=== PATIENT | female | born 1990 | race Caucasian/White ===

== ENCOUNTER 2016-10-27 14:28 | Emergency (ER) | payer OTHER ==
[~2016-10-27] VITALS: Ht 160 cm; Wt 90.7 kg
--- NOTE | 2016-10-27 14:28 | NUR ---
Patient BIBA at this time.
--- NOTE | 2016-10-27 14:31 | NUR ---
Dr. Pelaez evaluating patient.
[2016-10-27 14:38] VITALS: BP 110/70
[2016-10-27] MEDS ORDERED: NACL 0.9% 2,500 ML IV ONE (14:45)
--- NOTE | 2016-10-27 14:45 | NUR ---
Patient to Bed 04 via gurney per EMS.
--- NOTE | 2016-10-27 14:50 | NUR ---
PT BIBA FOR EVALUATION OF GENERALIZED WEAKNESS. FIELD CROP TECHNICAL OFFICER STATES PT WAS AT HOME LAST NOC AND C/O FEELING WEAK, PROCEEDED TO FALL, STRIKING HER NOSE ON THE TILE FLOOR, RESULTING IN A NOSEBLEED. SPOUSE STATES PT THEN SLEPT ON THE FLOOR BUT WOKE UP THIS AM STILL C/O FEELING WEAK. HX DM, BLOOD SUGAR UPON ARRIVAL TO ER 313.; DENIES N/V/D; SKIN IS PINK/WARM/DRY; AAOX4 WITH EVEN AND STEADY GAIT; LUNGS CLEAR BL; HR EVEN AND REGULAR; PT DENIES ANY FEVER, CP, SOB, OR COUGH AT THIS TIME; PATIENT STATES PAIN OF 9/10 AT THIS TIME; VSS; PATIENT POSITIONED FOR COMFORT; HOB ELEVATED; BEDRAILS UP X2; BED DOWN. ER MD MADE AWARE OF PT STATUS.
--- NOTE | 2016-10-27 14:51 | NUR ---
Dr. Pelaez evaluating patient at bedside.
--- NOTE | 2016-10-27 15:22 | NUR ---
RELAYED TO DR. BUSTILLOS RESULT OF URINE DIPSTICK AND URINE PREG
[2016-10-27] MEDS ORDERED: ACETAMINOPHEN EXTRA STRENGTH 500 MG TAB PO ONE (16:15)
[2016-10-27] MEDS ORDERED: HYDROcodone/APAP 5/325 MG 1 TAB TAB PO ONE (17:25)
[2016-10-27] MEDS ORDERED: METOCLOPRAMIDE 10 MG TAB PO ONE (17:25)
--- NOTE | 2016-10-27 17:45 | NUR ---
DINNER PROVIDED TO AAO PT AT BEDSIDE
[2016-10-27 18:58] VITALS: BP 112/72
--- NOTE | 2016-10-27 18:58 | NUR ---
Patient discharged with v/s stable. Written and verbal after care instructions given and explained. Patient alert, oriented and verbalized understanding of instructions. Ambulatory with steady gait. All questions addressed prior to discharge. ID band removed. Patient advised to follow up with PMD. Rx of KEFLEX, MOTRIN given. Patient educated on indication of medication including possible reaction and side effects. Opportunity to ask questions provided and answered.
== END 2016-10-27 18:58 | disposition home or self-care (01) ==
LOC: MED 14:31
DX: G93.0 Cerebral cysts (principal); N30.90 Cystitis, unspecified without hematuria; R04.0 Epistaxis; E11.9 Type 2 diabetes mellitus without complications
CPT/HCPCS: 36415; 70450; 80053; 80305; 81001; 81025; 82550; 82948; 85025; 87086; 93005; 96360; 96361; 99285; G0482; J7030; J8597; Q0163

== ENCOUNTER 2016-11-20 12:27 | Emergency (ER) | payer OTHER ==
[~2016-11-20] VITALS: Ht 162.6 cm; Wt 77.1 kg
--- NOTE | 2016-11-20 12:27 | NUR ---
1220--PT BIBA TO BED 8 AT THIS TIME.
[2016-11-20 12:28] VITALS: BP 116/64
[2016-11-20] MEDS ORDERED: KETOROLAC 30 MG/ML VIAL IVP ONE (12:35)
[2016-11-20] MEDS ORDERED: NACL 0.9% 1,000 ML IV ONE (12:35)
--- NOTE | 2016-11-20 12:49 | NUR ---
BIBA, PT REPORTS HAVING LOWER SUPRAPUBIC ABD PAIN THAT STARTED 2 HOURS AGO WITH SUDDEN LARGE AMOUNTS OF BRIGHT RED VAGINAL BLEEDING. PT PP 9MONTHS-NORMAL DELIVERY. PT DENIES KNOWING IF SHE IS . PT DENIES ANY FEVERS/CHILLS. NO N/V/D. SKIN WARM/DRY.
--- NOTE | 2016-11-20 13:35 | NUR ---
US AT BEDSIDE
--- NOTE | 2016-11-20 14:00 | NUR ---
NS IV end time at 1400
[2016-11-20 15:15] VITALS: BP 112/80
--- NOTE | 2016-11-20 15:17 | NUR ---
Patient discharged with v/s stable. Written and verbal after care instructions given and explained. Patient alert, oriented and verbalized understanding of instructions. Ambulatory with steady gait. All questions addressed prior to discharge. ID band removed. Patient advised to follow up with PMD. Patient educated on indication of medication including possible reaction and side effects. Opportunity to ask questions provided and answered.
== END 2016-11-20 15:17 | disposition home or self-care (01) ==
LOC: MED 12:27
DX: N93.8 Other specified abnormal uterine and vaginal bleeding (principal); E11.9 Type 2 diabetes mellitus without complications
CPT/HCPCS: 36415; 76801; 76817; 80048; 81001; 81025; 84702; 85025; 86900; 86901; 87086; 96361; 96374; 99285; J1885; J7030; Q0092

== ENCOUNTER 2017-03-25 19:03 | Emergency (ER) | payer OTHER ==
[~2017-03-25] VITALS: Ht 162.6 cm; Wt 92.5 kg
--- NOTE | 2017-03-25 19:03 | NUR ---
Patient was BIBA at this time.
--- NOTE | 2017-03-25 19:15 | NUR ---
PT TAKEN TO ER BED 05 VIA JUAN/MARIOLA.
--- NOTE | 2017-03-25 19:16 | NUR ---
27 y/o F BIBA W/C/O DIZZINESS, HEADACHES, NAUSEA AND R SIDE ABD PAIN WHICH RADIATES TO LOWER ABD PAIN X TODAY. PT DENIES ANY SOB, 96% RA, NO S/S OF RESP DISTRESS. MED HX DM ON METFORMIN. IV [address] ROUTE BY MEDICS. ER MD MADE AWARE.
[2017-03-25 19:18] VITALS: BP 127/80
--- NOTE | 2017-03-25 19:24 | NUR ---
Pam john in ED - 03/25/[address] Fields evaluating patient at bedside.
--- NOTE | 2017-03-25 19:38 | NUR ---
Dr. Mancia evaluating patient at bedside.
[2017-03-25] MEDS ORDERED: NACL 0.9% 1,000 ML IV ONE (19:50)
--- NOTE | 2017-03-25 19:56 | NUR ---
LAB at bedside.
[2017-03-25 20:14] LABS: BASOPHILS # (AUTO) 0.1 K/uL (0.00-0.22); BASOPHILS % (AUTO) 1.8 % (0.0-2.0); EOSINOPHILS # (AUTO) 0.2 K/uL (0-0.4); EOSINOPHILS % (AUTO) 1.9 % (0.0-4.0); HEMATOCRIT 43.2 % (36-48); HEMOGLOBIN 14.9 g/dL (12.0-16.0); LYMPHOCYTES # (AUTO) 2.8 K/uL (2.5-16.5); LYMPHOCYTES % (AUTO) 35.9 % (20.5-51.1); MEAN CORPUSCULAR HEMOGLOBIN 30 pg (27-31); MEAN CORPUSCULAR HGB CONC 35 g/dL (33-37); MEAN CORPUSCULAR VOLUME 86 fL (80-94); MONOCYTES # (AUTO) 0.5 K/uL (0.8-1.0); MONOCYTES % (AUTO) 6.7 % (1.7-9.3); NEUTROPHILS # (AUTO) 4.3 K/uL (1.8-7.7); NEUTROPHILS % (AUTO) 53.7 % (42.2-75.2); PLATELET COUNT (AUTO) 230 K/uL (140-450); RED BLOOD CELL COUNT(AUTO) 5.03 MIL/uL (4.20-5.40); RED CELL DISTRIBUTION WIDTH 12.3 % (11.6-13.7); WHITE BLOOD COUNT (AUTO) 7.9 K/uL (4.8-10.8)
[2017-03-25 20:15] LABS: APPEARANCE,URINE HAZY (CLEAR); BILIRUBIN,URINE NEGATIVE (NEGATIVE); BLOOD, URINE TRACE-L (NEGATIVE); COLOR,URINE YELLOW (YELLOW); LEUKOCYTE ESTERASE ,URINE NEGATIVE (NEGATIVE); NITRITE, URINE NEGATIVE (NEGATIVE); PROTEIN,URINE 1+ (NEGATIVE); UGLUCOSE 3+ (NEGATIVE); UROBILINOGEN,URINE 0.2 EU/dL (0.2 - 1)
[2017-03-25 20:22] LABS: BACTERIA,URINE 1-9 (FEW) /HPF (None Seen)
[2017-03-25 20:24] LABS: ANION GAP 11.7 (8-16); CALCIUM 7.9 mg/dL (8.5-10.1); CARBON DIOXIDE 25.8 mmol/L (21-32); CREATININE 0.8 mg/dL (0.6-1.3); POTASSIUM 4.5 mmol/L (3.5-5.1)
[2017-03-25 20:30] LABS: ALBUMIN 3.7 g/dL (3.4-5.0); TOTAL BILIRUBIN 0.5 mg/dL (0.0-1.0); TOTAL PROTEIN, SERUM 7.8 g/dL (6.4-8.2)
--- NOTE | 2017-03-25 20:34 | NUR ---
Patient going to CT via wheelchair per tech.
--- NOTE | 2017-03-25 20:46 | NUR ---
Patient back from CT via wheelchair per tech.
--- NOTE | 2017-03-25 21:10 | NUR ---
PT RESTING IN BED AWATING FOR RESULTS. ON TELEGRAPHIC INSTRUMENT SUPERVISOR, VSS.
[2017-03-25] MEDS ORDERED: MORPHINE SULFATE 2 MG/ML SYR IVP ONE (21:40)
[2017-03-25] MEDS ORDERED: ONDANSETRON 4 MG/2 ML VIAL IVP ONE (21:40)
[2017-03-25] MEDS ORDERED: INSULIN HUMAN REGULAR 100 UNITS/ML 10 ML VIAL SUBQ ONE (21:55)
--- NOTE | 2017-03-25 22:24 | NUR ---
Patient discharged with v/s stable. Written and verbal after care instructions given and explained. Patient alert, oriented and verbalized understanding of instructions. Ambulatory with steady gait. All questions addressed prior to discharge. ID band removed. Patient advised to follow up with PMD IN 1-2 DAYS. Rx of ZOFRAN given. Patient educated on indication of medication including possible reaction and side effects. Opportunity to ask questions provided and answered.
[2017-03-25 22:26] VITALS: BP 121/78
== END 2017-03-25 22:24 | disposition home or self-care (01) ==
LOC: MED 19:03
DX: E11.65 Type 2 diabetes mellitus with hyperglycemia (principal)
CPT/HCPCS: 36415; 74176; 80053; 81001; 81025; 82948; 85025; 87086; 96361; 96372; 96374; 96375; 99285; J1815; J2270; J2405; J7030

== ENCOUNTER 2017-04-18 20:34 | Emergency (ER) | payer OTHER ==
[~2017-04-18] VITALS: Ht 167.6 cm; Wt 91.6 kg
[2017-04-18 20:42] VITALS: BP 109/65
--- NOTE | 2017-04-18 21:11 | NUR ---
PT TAKEN TO OF3
--- NOTE | 2017-04-18 21:40 | NUR ---
Dr. Faye evaluating patient at bedside.
[2017-04-18] MEDS ORDERED: KETOROLAC 60 MG/2 ML VIAL IM ONE (21:45)
--- NOTE | 2017-04-18 21:49 | NUR ---
PT TAKEN TO XRAY
--- NOTE | 2017-04-18 21:58 | NUR ---
PT RETURN FROM XRAY
[2017-04-18] MEDS ORDERED: fentaNYL 0.05 MG/ML VIAL IM ONE (22:50)
[2017-04-18] MEDS ORDERED: ONDANSETRON 4 MG ODT PO ONE (23:30)
[2017-04-18 23:40] VITALS: BP 121/64
--- NOTE | 2017-04-18 23:40 | NUR ---
Patient discharged with v/s stable. Written and verbal after care instructions given and explained. Patient alert, oriented and verbalized understanding of instructions. Ambulatory with steady gait. All questions addressed prior to discharge. ID band removed. Patient advised to follow up with PMD. Rx of Motrin, Prednisone, and Tramadol given. Patient educated on indication of medication including possible reaction and side effects. Opportunity to ask questions provided and answered.
== END 2017-04-18 23:40 | disposition home or self-care (01) ==
LOC: MED 20:34
DX: M54.41 Lumbago with sciatica, right side (principal); E11.9 Type 2 diabetes mellitus without complications
CPT/HCPCS: 72100; 81002; 81025; 96372; 99284; J1885; J3010; S0119

== ENCOUNTER 2017-04-30 19:41 | Emergency (ER) | payer OTHER ==
[~2017-04-30] VITALS: Ht 167.6 cm; Wt 90.4 kg
[2017-04-30 20:15] VITALS: BP 120/65
--- NOTE | 2017-04-30 20:55 | NUR ---
PATIENT PRESENTS TO ED WITH C/O ABDOMINAL PAIN . PT STATES SHE HAS NOT VOIDED SINCE 10AM TODAY. PATIENT ALSO REPORTS THAT SHE EXPERIENCED SOME BURNING SENSATION WHEN SHE VOIDED . DENIES N/V/D; SKIN IS PINK/WARM/DRY; AAOX4 WITH EVEN AND STEADY GAIT; LUNGS CLEAR BL; HR EVEN AND REGULAR; PT DENIES ANY FEVER, CP, SOB, OR COUGH AT THIS TIME; PATIENT STATES PAIN OF 9/10 AT THIS TIME; VSS; PATIENT POSITIONED FOR COMFORT; HOB ELEVATED; BEDRAILS UP X2; BED DOWN. ER MD MADE AWARE OF PT STATUS.
--- NOTE | 2017-04-30 20:55 | NUR ---
Patient to bed 08.
[2017-04-30] MEDS ORDERED: HYDROcodone/APAP 5/325 MG 1 TAB TAB PO ONE (21:15)
[2017-04-30] MEDS ORDERED: PHENAZOPYRIDINE 100 MG TAB PO ONE (21:55)
--- NOTE | 2017-04-30 22:11 | NUR ---
BLADDER SCAN DONE AT BEDSIDE. 419ML URINE NOTED. BOBBY HAYWOOD NOTIFIED
--- NOTE | 2017-04-30 22:37 | NUR ---
Pam john in ED - 04/30/17 at 2237 by KEITH Patient back from CT via wheelchair per tech.
--- NOTE | 2017-04-30 23:44 | NUR ---
Patient discharged with v/s stable. Written and verbal after care instructions given and explained. Patient alert, oriented and verbalized understanding of instructions. Ambulatory with steady gait. All questions addressed prior to discharge. ID band removed. Patient advised to follow up with PMD. Rx of TYLENOL WITH CODEINE, CIPRO, COALCE, PHENAZOPYRIDINE HYDROCHLORIDE given. Patient educated on indication of medication including possible reaction and side effects. Opportunity to ask questions provided and answered.
[2017-04-30 23:56] VITALS: BP 106/67
== END 2017-04-30 23:44 | disposition home or self-care (01) ==
LOC: MED 19:41
DX: N30.00 Acute cystitis without hematuria (principal)
CPT/HCPCS: 74176; 82948; 87086; 99285; C1758

== ENCOUNTER 2017-09-09 23:24 | Emergency (ER) | payer OTHER ==
[~2017-09-09] VITALS: Ht 167.6 cm; Wt 91.2 kg
[2017-09-09 23:46] VITALS: BP 129/74
[2017-09-09] MEDS ORDERED: METF1000 PO (23:50)
--- NOTE | 2017-09-10 00:07 | NUR ---
AMBULATED TO ER BED 4
[2017-09-10 00:10] VITALS: BP 129/74
--- NOTE | 2017-09-10 00:10 | NUR ---
PATIENT PRESENTS TO ED WITH C/O LEFT SIDE ABD PAIN . PT DENIES N/V/D; SKIN IS PINK/WARM/DRY; AAOX4 WITH EVEN AND STEADY GAIT; LUNGS CLEAR BL; HR EVEN AND REGULAR; PT DENIES ANY FEVER, CP, SOB, OR COUGH AT THIS TIME; PATIENT STATES PAIN OF 8/10 AT THIS TIME; VSS; PATIENT POSITIONED FOR COMFORT; HOB ELEVATED; BEDRAILS UP X2; BED DOWN. ER MD MADE AWARE OF PT STATUS.
[2017-09-10 00:18] LABS: BASOPHILS # (AUTO) 0.4 K/uL (0.00-0.22); BASOPHILS % (AUTO) 4.3 % (0.0-2.0); EOSINOPHILS # (AUTO) 0.1 K/uL (0-0.4); EOSINOPHILS % (AUTO) 1.5 % (0.0-4.0); HEMATOCRIT 39.7 % (36-48); HEMOGLOBIN 13.4 g/dL (12.0-16.0); LYMPHOCYTES # (AUTO) 2.8 K/uL (2.5-16.5); LYMPHOCYTES % (AUTO) 29.7 % (20.5-51.1); MEAN CORPUSCULAR HEMOGLOBIN 29 pg (27-31); MEAN CORPUSCULAR HGB CONC 34 g/dL (33-37); MEAN CORPUSCULAR VOLUME 87 fL (80-94); MONOCYTES # (AUTO) 0.6 K/uL (0.8-1.0); MONOCYTES % (AUTO) 6.1 % (1.7-9.3); NEUTROPHILS # (AUTO) 5.6 K/uL (1.8-7.7); NEUTROPHILS % (AUTO) 58.4 % (42.2-75.2); PLATELET COUNT (AUTO) 281 K/uL (140-450); RED BLOOD CELL COUNT(AUTO) 4.55 MIL/uL (4.20-5.40); RED CELL DISTRIBUTION WIDTH 11.8 % (11.6-13.7); WHITE BLOOD COUNT (AUTO) 9.5 K/uL (4.8-10.8)
[2017-09-10 00:19] LABS: APPEARANCE,URINE CLEAR (CLEAR); BILIRUBIN,URINE NEGATIVE (NEGATIVE); BLOOD, URINE NEGATIVE (NEGATIVE); COLOR,URINE YELLOW (YELLOW); LEUKOCYTE ESTERASE ,URINE NEGATIVE (NEGATIVE); NITRITE, URINE NEGATIVE (NEGATIVE); UGLUCOSE NEGATIVE (NEGATIVE)
[2017-09-10 00:36] LABS: ALBUMIN 3.9 g/dL (3.4-5.0); ANION GAP 12.5 (8-16); CARBON DIOXIDE 25.9 mmol/L (21-32); CREATININE 0.7 mg/dL (0.6-1.3); POTASSIUM 3.4 mmol/L (3.5-5.1); TOTAL BILIRUBIN 0.3 mg/dL (0.0-1.0)
--- NOTE | 2017-09-10 01:28 | NUR ---
Patient discharged with v/s stable. Written and verbal after care instructions given and explained. Patient verbalized understanding. Ambulatory with steady gait. All questions addressed prior to discharge. Advised to follow up with PMD.
== END 2017-09-10 01:28 | disposition home or self-care (01) ==
LOC: MED 23:24
DX: O26.891 Other specified pregnancy related conditions, first trimester (principal); R10.32 Left lower quadrant pain; E11.9 Type 2 diabetes mellitus without complications
CPT/HCPCS: 36415; 76801; 80053; 81003; 81025; 82948; 84702; 85025; 86900; 86901; 99285; Q0092

== ENCOUNTER 2017-09-12 16:24 | Emergency (ER) | payer MEDICAID, OTHER ==
[~2017-09-12] VITALS: Ht 167.6 cm; Wt 91.2 kg
[~2017-09-12 16:24] MED LIST: METF1000 PO
[2017-09-12 16:48] VITALS: BP 107/73
--- NOTE | 2017-09-12 17:04 | NUR ---
Patient to bed 12.
--- NOTE | 2017-09-12 17:06 | NUR ---
PT PRESENTS TO ER FOR EVALUATION OF ABDOMINAL PAIN X10 DAYS. PT STATES SHE WAS SEEN IN ER 2 DAYS AGO FOR SAME S/SX AND FEELS HER SX HAVEN'T IMPROVED.HX DM. PT ALSO STATED PT HAD DIARRHEA X 2 EPISODES & URINATION BURNING X TODAY. DENIES N/V. SKIN IS PINK/WARM/DRY; AAOX4 WITH EVEN AND STEADY GAIT; LUNGS CLEAR BL; HR EVEN AND REGULAR; PT DENIES ANY FEVER, CP, SOB, OR COUGH AT THIS TIME; PATIENT STATES R BACK PAIN OF 8/10 AT THIS TIME; PATIENT POSITIONED FOR COMFORT; HOB ELEVATED; BEDRAILS UP X2; BED DOWN. ER MD MADE AWARE OF PT STATUS. Addendum: 09/12/17 at 1724 by [facility] PT STATED " I DON'T HAVE ABDOMINAL PAIN BUT R BACK PAIN AT THIS TIME.
--- NOTE | 2017-09-12 17:25 | NUR ---
Patient being evaluated by DR BUTTS AT BEDSIDE.
[2017-09-12 17:53] VITALS: BP 117/63
== END 2017-09-12 17:53 | disposition home or self-care (01) ==
LOC: MED 16:24
DX: O26.891 Other specified pregnancy related conditions, first trimester (principal); R10.9 Unspecified abdominal pain; R19.7 Diarrhea, unspecified; E11.9 Type 2 diabetes mellitus without complications; Z3A.00 Weeks of gestation of pregnancy not specified; Z79.84 Long term (current) use of oral hypoglycemic drugs
CPT/HCPCS: 81002; 81025; 99283

== ENCOUNTER 2018-12-13 18:20 | Emergency (ER) | payer MEDICAID ==
[~2018-12-13] VITALS: Ht 154.9 cm; Wt 91.6 kg
[2018-12-13 18:20] VITALS: BP 117/81
--- NOTE | 2018-12-13 20:11 | NUR ---
called x 1 no response
== END 2018-12-13 20:12 | disposition left against medical advice (07) ==
LOC: MED 18:20
DX: F41.0 Panic disorder [episodic paroxysmal anxiety] (principal); R06.00 Dyspnea, unspecified; R20.0 Anesthesia of skin; Z53.21 Procedure and treatment not carried out due to patient leaving prior to being seen by health care provider

== ENCOUNTER 2019-01-15 23:33 | Emergency (ER) | payer MEDICAID ==
[~2019-01-15] VITALS: Ht 162.6 cm; Wt 92.5 kg
--- NOTE | 2019-01-15 23:35 | NUR ---
BIBA WITH C/O HO AND RIGHT SIDED FACIAL NUMBNESS WITH BLURRED VISION ON RIGHT SIDE. PERRL, NO ASSYMETRY NOTED IN SKIN LAP BONDER OR SMILE. DIZZINESS AND SOB REPORTED. NO LABORED BREATHING NOTED AT THIS TIME. PATIENT SPEAKING IN FULL AND COMPLETE SENTENCES.
[2019-01-15 23:36] VITALS: BP 113/65
--- NOTE | 2019-01-15 23:40 | NUR ---
ERMD AT BEDSIDE.
[2019-01-15] MEDS ORDERED: NACL 0.9% 1,000 ML IV ONE (23:47)
[2019-01-16 00:15] LABS: ANION GAP 12.7 (8-16); CARBON DIOXIDE 25.1 mmol/L (21-32); CREATININE 0.8 mg/dL (0.6-1.3); POTASSIUM 3.8 mmol/L (3.5-5.1)
[2019-01-16 00:21] LABS: TOTAL BILIRUBIN 0.4 mg/dL (0.0-1.0)
[2019-01-16 00:30] LABS: ALBUMIN 3.6 g/dL (3.4-5.0)
[2019-01-16 00:50] LABS: BARBITURATE, URINE NEG. ng/ml (NEG <=200); BENZODIAZEPINE, URINE NEG. ng/mL (NEG <=200); CANNABINOID, URINE NEG. ng/mL (NEG <=50); COCAINE, URINE NEG. ng/mL (NEG <=300); OPIATE, URINE NEG. ng/mL (NEG <=2000); PHENCYCLIDINE SCREEN,URINE NEG. ng/mL (NEG <=25)
[2019-01-16] MEDS ORDERED: NACL 0.9% 1,000 ML IV ONE (01:25)
[2019-01-16] MEDS ORDERED: INSULIN REGULAR, HUMAN 100 UNIT/ML VIAL IVP ONE (01:25)
--- NOTE | 2019-01-16 01:35 | NUR ---
PATIENT AMB TO RESTROOM ASSISTED BY EMT.
[2019-01-16 02:01] VITALS: BP 108/63
--- NOTE | 2019-01-16 02:02 | NUR ---
Patient discharged with v/s stable. Written and verbal after care instructions given and explained. Patient alert, oriented and verbalized understanding of instructions. Ambulatory with steady gait. All questions addressed prior to discharge. ID band removed. Patient advised to follow up with PMD. Rx of METFORMIN given. Patient educated on indication of medication including possible reaction and side effects. Opportunity to ask questions provided and answered.
== END 2019-01-16 02:02 | disposition home or self-care (01) ==
LOC: MED 23:33
DX: E11.65 Type 2 diabetes mellitus with hyperglycemia (principal); Z79.84 Long term (current) use of oral hypoglycemic drugs
CPT/HCPCS: 36415; 80053; 80305; 81002; 81025; 82948; 96361; 96374; 99283; J1815; J7030

== ENCOUNTER 2019-10-02 18:33 | Emergency (ER) | payer MEDICAID ==
[~2019-10-02] VITALS: Ht 162.6 cm; Wt 86.2 kg
[2019-10-02 19:04] VITALS: BP 132/72
--- NOTE | 2019-10-02 19:25 | NUR ---
PATIENT AMB TO [facility]
--- NOTE | 2019-10-02 19:32 | NUR ---
PUNEET CAMPOS AT CHAIRSIDE
[2019-10-02] MEDS ORDERED: KETOROLAC 30 MG/ML VIAL IM ONE (19:35)
--- NOTE | 2019-10-02 19:36 | NUR ---
ASSESSMENT COMPLETED AT THIS TIME. PATIENT SITTING UP IN CHAIR WITH FAMILY AT BEDSIDE.
[2019-10-02 19:53] VITALS: BP 132/72
--- NOTE | 2019-10-02 19:53 | NUR ---
Patient discharged with v/s stable. Written and verbal after care instructions given and explained. Patient alert, oriented and verbalized understanding of instructions. Ambulatory with steady gait. All questions addressed prior to discharge. ID band removed. Patient advised to follow up with PMD. Rx of PREDNISONE, IBUPROFEN, AMOXICILLIN given. Patient educated on indication of medication including possible reaction and side effects. Opportunity to ask questions provided and answered.
== END 2019-10-02 19:53 | disposition home or self-care (01) ==
LOC: MED 18:33
DX: J02.9 Acute pharyngitis, unspecified (principal); E11.9 Type 2 diabetes mellitus without complications; Z79.84 Long term (current) use of oral hypoglycemic drugs
CPT/HCPCS: 82948; 96372; 99283; J1885

== ENCOUNTER 2019-12-23 20:24 | Emergency (ER) | payer MEDICAID, SELFPAY ==
[~2019-12-23] VITALS: Ht 162.6 cm; Wt 86.2 kg
[2019-12-23 20:33] VITALS: BP 100/69
[2019-12-23] MEDS ORDERED: NACL 0.9% 1,000 ML IV ONE ×2 (21:00→23:10)
[2019-12-23] MEDS ORDERED: ACETAMINOPHEN 325 MG TAB PO ONE (21:40)
[2019-12-23] MEDS ORDERED: DEXAMETHASONE 4 MG/ML VIAL PO ONE (21:40)
[2019-12-23 22:33] LABS: BASOPHILS # (AUTO) 0.1 K/uL (0.00-0.22); BASOPHILS % (AUTO) 0.6 % (0.0-2.0); EOSINOPHILS # (AUTO) 0.2 K/uL (0-0.4); EOSINOPHILS % (AUTO) 1.7 % (0.0-4.0); HEMATOCRIT 35.2 % (36-48); HEMOGLOBIN 12.1 g/dL (12.0-16.0); LYMPHOCYTES # (AUTO) 2.6 K/uL (2.5-16.5); LYMPHOCYTES % (AUTO) 26.7 % (20.5-51.1); MEAN CORPUSCULAR HEMOGLOBIN 30 pg (27-31); MEAN CORPUSCULAR HGB CONC 34 g/dL (33-37); MEAN CORPUSCULAR VOLUME 87.1 fL (80-94); MONOCYTES # (AUTO) 0.7 K/uL (0.8-1.0); MONOCYTES % (AUTO) 6.7 % (1.7-9.3); NEUTROPHILS # (AUTO) 6.3 K/uL (1.8-7.7); NEUTROPHILS % (AUTO) 64.3 % (42.2-75.2); PLATELET COUNT (AUTO) 293 K/uL (140-450); RED BLOOD CELL COUNT(AUTO) 4.05 MIL/uL (4.20-5.40); RED CELL DISTRIBUTION WIDTH 12.7 % (11.6-13.7); WHITE BLOOD COUNT (AUTO) 9.8 K/uL (4.8-10.8)
[2019-12-23 22:59] LABS: ALBUMIN 3.4 g/dL (3.4-5.0); ANION GAP 13.3 (8-16); CARBON DIOXIDE 27.1 mmol/L (21-32); CREATININE 0.8 mg/dL (0.6-1.3); POTASSIUM 3.4 mmol/L (3.5-5.1); TOTAL BILIRUBIN 0.2 mg/dL (0.0-1.0)
[2019-12-23] MEDS ORDERED: PENICILLIN G BENZATHINE L-A 1.2 MU/2 ML SYR IM ONE (23:45)
[2019-12-24 00:54] VITALS: BP 104/60
== END 2019-12-24 00:38 | disposition home or self-care (01) ==
LOC: MED 20:24 → EEVIPCON 20:24 → MED 12-24 00:38
DX: J02.9 Acute pharyngitis, unspecified (principal); Z20.828 Contact with and (suspected) exposure to other viral communicable diseases; E11.9 Type 2 diabetes mellitus without complications; Z79.84 Long term (current) use of oral hypoglycemic drugs
CPT/HCPCS: 36415; 71045; 80053; 83605; 85025; 87040; 87081; 87804; 96372; 99284; J0561; J1100; J7030; Q0092; U0002

== ENCOUNTER 2020-02-04 11:52 | Emergency (ER) | payer MEDICAID, SELFPAY ==
[~2020-02-04] VITALS: Ht 162.6 cm; Wt 88.5 kg
[2020-02-04 11:55] VITALS: BP 112/66
--- NOTE | 2020-02-04 11:56 | NUR ---
Patient ambulated to bed 1. RN evaluating patient at bedside.
--- NOTE | 2020-02-04 12:05 | NUR ---
PT C/O FREQUENCY, URGENCY, AND BURNING SENSATION OF URINATION, AND MID LOWER BACK PAIN FOR 2 DAYS, AND SLIGHT SPOTTING YESTERDAY. ALSO REPORTS HAVING MILD RIGHT LOWER ABDOMINAL PAIN WHILE LYING DOWN. DENIES HEMATURIA OR DYSURIA. DENIES COUGH, FEVER, CP, SOB, N/V/D, RUNNY NOSE, SORE THROAT, SICK CONTACTS, OR RECENT TRAVEL. PATIENT STATES PAIN OF 7/10 AT THIS TIME; VSS; PATIENT POSITIONED FOR COMFORT; HOB ELEVATED; BEDRAILS UP X1; BED DOWN. ER MD MADE AWARE OF PT STATUS.
[2020-02-04] MEDS ORDERED: ACETAMINOPHEN 325 MG TAB PO ONE (12:30)
[2020-02-04] MEDS ORDERED: IBUPROFEN 400 MG TAB PO ONE (12:30)
--- NOTE | 2020-02-04 13:11 | NUR ---
U/S IS AT BEDSIDE.
[2020-02-04 13:18] LABS: BASOPHILS % (AUTO) 0.3 % (0.0-2.0); EOSINOPHILS # (AUTO) 0.1 K/uL (0-0.4); HEMOGLOBIN 13.3 g/dL (12.0-16.0); LYMPHOCYTES % (AUTO) 27.3 % (20.5-51.1); MEAN CORPUSCULAR HEMOGLOBIN 30 pg (27-31); MEAN CORPUSCULAR HGB CONC 34 g/dL (33-37); MEAN CORPUSCULAR VOLUME 87.9 fL (80-94); MONOCYTES # (AUTO) 0.4 K/uL (0.8-1.0); MONOCYTES % (AUTO) 5.6 % (1.7-9.3); NEUTROPHILS # (AUTO) 4.8 K/uL (1.8-7.7); NEUTROPHILS % (AUTO) 64.8 % (42.2-75.2); PLATELET COUNT (AUTO) 257 K/uL (140-450); RED BLOOD CELL COUNT(AUTO) 4.43 MIL/uL (4.20-5.40); RED CELL DISTRIBUTION WIDTH 12.8 % (11.6-13.7); WHITE BLOOD COUNT (AUTO) 7.4 K/uL (4.8-10.8)
[2020-02-04 13:22] LABS: CARBON DIOXIDE 26.9 mmol/L (21-32); CREATININE 0.7 mg/dL (0.6-1.3); POTASSIUM 3.9 mmol/L (3.5-5.1)
[2020-02-04 13:26] LABS: APPEARANCE,URINE HAZY (CLEAR); BILIRUBIN,URINE NEGATIVE (NEGATIVE); BLOOD, URINE NEGATIVE (NEGATIVE); COLOR,URINE YELLOW (YELLOW); LEUKOCYTE ESTERASE ,URINE 1+ (NEGATIVE); NITRITE, URINE NEGATIVE (NEGATIVE); UGLUCOSE TRACE (NEGATIVE)
[2020-02-04 13:52] LABS: RBC,URINE 0-5 /HPF (0-5)
[2020-02-04] MEDS ORDERED: CEPHALEXIN 500 MG CAP PO ONE (14:00)
[2020-02-04 14:18] VITALS: BP 105/60
--- NOTE | 2020-02-04 14:18 | NUR ---
Patient discharged with v/s stable. Written and verbal after care instructions given and explained. Patient alert, oriented and verbalized understanding of instructions. Ambulatory with steady gait. All questions addressed prior to discharge. ID band removed. Patient advised to follow up with PMD. Rx of AND KEFLEX given. Patient educated on indication of medication including possible reaction and side effects. Opportunity to ask questions provided and answered.
== END 2020-02-04 14:18 | disposition home or self-care (01) ==
LOC: MED 11:52
DX: R10.30 Lower abdominal pain, unspecified (principal); M54.9 Dorsalgia, unspecified; R35.0 Frequency of micturition; E11.9 Type 2 diabetes mellitus without complications; Z79.84 Long term (current) use of oral hypoglycemic drugs
CPT/HCPCS: 36415; 76817; 80048; 81001; 81025; 84702; 85025; 86900; 86901; 87086; 87186; 99284; Q0092

== ENCOUNTER 2020-02-28 21:37 | Emergency (ER) | payer MEDICAID, SELFPAY ==
[~2020-02-28] VITALS: Ht 162.6 cm; Wt 88.9 kg
[2020-02-28 21:41] VITALS: BP 95/60
--- NOTE | 2020-02-28 21:45 | NUR ---
PT TAKEN TO BED 04 VIA WHEELCHAIR.
--- NOTE | 2020-02-28 21:48 | NUR ---
Pam john in ED - 02/28/20 at 2154 by MEDJJ PT TAKEN TO RADIOLOGY
--- NOTE | 2020-02-28 21:50 | NUR ---
30 Y/O FEMALE BIB PARTNER TO ER WITH C/O MIDLINE/CENTER LBP W/O RADIATION X 1 DAY 05/10 PAIN. LOWER BACK TTP. DENIES INJURY TO AFFECTED AREA, PAINFUL URINATION,NO VISIBLE BLOOD IN URINE, ABDOMINAL CRAMPING, DIARRHEA, NAUSEA, VOMITING, SOB, OR COUGH. VAGINAL BLEEDING, OR DISCHARGE, CONSTIPATION. R/R EQUAL, AND UNLABORED, VSS. PT PLACED IN GOWN, SIDE RAIL X1, BED IN LOW POSITION, WILL CONTINUE TO MONITOR. NKDA PMH: DM II
--- NOTE | 2020-02-28 21:50 | NUR ---
PT MOVED TO BED 12 VIA WHEELCHAIR.
--- NOTE | 2020-02-28 22:07 | NUR ---
Ultrasound at bedside.
[2020-02-28 22:21] LABS: BASOPHILS % (AUTO) 0.4 % (0.0-2.0); EOSINOPHILS # (AUTO) 0.2 K/uL (0-0.4); HEMATOCRIT 36.8 % (36-48); HEMOGLOBIN 12.7 g/dL (12.0-16.0); LYMPHOCYTES # (AUTO) 2.8 K/uL (2.5-16.5); LYMPHOCYTES % (AUTO) 34.3 % (20.5-51.1); MEAN CORPUSCULAR HEMOGLOBIN 31 pg (27-31); MEAN CORPUSCULAR HGB CONC 35 g/dL (33-37); MEAN CORPUSCULAR VOLUME 88.8 fL (80-94); MONOCYTES # (AUTO) 0.5 K/uL (0.8-1.0); MONOCYTES % (AUTO) 5.7 % (1.7-9.3); NEUTROPHILS # (AUTO) 4.7 K/uL (1.8-7.7); NEUTROPHILS % (AUTO) 57.6 % (42.2-75.2); PLATELET COUNT (AUTO) 262 K/uL (140-450); RED BLOOD CELL COUNT(AUTO) 4.14 MIL/uL (4.20-5.40); RED CELL DISTRIBUTION WIDTH 12.9 % (11.6-13.7); WHITE BLOOD COUNT (AUTO) 8.1 K/uL (4.8-10.8)
[2020-02-28 22:53] LABS: ALBUMIN 3.7 g/dL (3.4-5.0); CARBON DIOXIDE 25.8 mmol/L (21-32); CREATININE 0.9 mg/dL (0.6-1.3); TOTAL BILIRUBIN 0.4 mg/dL (0.0-1.0)
[2020-02-28 23:01] LABS: ANION GAP 15.1 (8-16); POTASSIUM 3.9 mmol/L (3.5-5.1)
[2020-02-28] MEDS ORDERED: ACETAMINOPHEN 650 MG SUPP RC ONE (23:40)
[2020-02-29 00:10] LABS: APPEARANCE,URINE CLEAR (CLEAR); BILIRUBIN,URINE NEGATIVE (NEGATIVE); BLOOD, URINE NEGATIVE (NEGATIVE); COLOR,URINE YELLOW (YELLOW); LEUKOCYTE ESTERASE ,URINE NEGATIVE (NEGATIVE); NITRITE, URINE NEGATIVE (NEGATIVE); PH,URINE 6.5 (5.0-9.0); UGLUCOSE NEGATIVE (NEGATIVE)
[2020-02-29] MEDS ORDERED: ACETAMINOPHEN 325 MG TAB ONE (00:26)
[2020-02-29 00:28] LABS: RBC,URINE 0-5 /HPF (0-5); WBC,URINE NONE SEEN /HPF (0-5)
[2020-02-29] MEDS ORDERED: ACETAMINOPHEN 325 MG TAB PO ONE (00:30)
[2020-02-29 00:31] VITALS: BP 95/60
--- NOTE | 2020-02-29 00:33 | NUR ---
Patient discharged BY DR. REID with v/s stable. Written and verbal after care instructions given and explained BY DR. REID. Patient alert, oriented and verbalized understanding of instructions. Ambulatory with steady gait. All questions addressed prior to discharge. ID band removed. Patient advised to follow up with PMD. Rx of TYLENOL given. Patient educated on indication of medication including possible reaction and side effects. Opportunity to ask questions provided and answered.
== END 2020-02-29 00:33 | disposition home or self-care (01) ==
LOC: MED 21:37
DX: T14.8XXA Other injury of unspecified body region, initial encounter (principal); E11.9 Type 2 diabetes mellitus without complications; Z98.890 Other specified postprocedural states; Z79.899 Other long term (current) drug therapy; X58.XXXA Exposure to other specified factors, initial encounter; Y93.89 Activity, other specified; Y92.89 Other specified places as the place of occurrence of the external cause; Y99.8 Other external cause status
CPT/HCPCS: 36415; 76801; 80053; 81001; 81025; 84702; 85025; 86900; 86901; 99284; Q0092

== ENCOUNTER 2021-02-09 18:40 | Emergency (ER) | payer MEDICAID, SELFPAY ==
[~2021-02-09] VITALS: Ht 162.6 cm; Wt 92.5 kg
[2021-02-09 18:46] VITALS: BP 116/55
--- NOTE | 2021-02-09 18:47 | NUR ---
Patient ambulated to bed 06 with steady/even gait.
--- NOTE | 2021-02-09 19:09 | NUR ---
EMT at bedside for EKG.
--- NOTE | 2021-02-09 19:10 | NUR ---
Patient unable to void at this time. Water cup provided at bedside; encouraged to drink and void.
--- NOTE | 2021-02-09 19:20 | NUR ---
RECEIVED BEDSIDE ENDORSEMENT FROM AM SHIFT RN. PT IS IN BED, NO DISTRESS, AAOX4, ON ROOM AIR, SAFETY MEASURES IN PLACE, WILL CONTINUE TO MONITOR.
--- NOTE | 2021-02-09 19:24 | NUR ---
Dr. Zhao is evaluating patient at bedside.
--- NOTE | 2021-02-09 19:32 | NUR ---
PT VOIDED. URINE SAMPLE COLLECTED.
[2021-02-09] MEDS ORDERED: NACL 0.9% 1,000 ML IV ONE (19:35)
[2021-02-09 19:49] LABS: BASOPHILS % (AUTO) 0.4 % (0.0-2.0); EOSINOPHILS # (AUTO) 0.2 K/uL (0-0.4); EOSINOPHILS % (AUTO) 2.9 % (0.0-4.0); HEMATOCRIT 41.5 % (36-48); HEMOGLOBIN 14.2 g/dL (12.0-16.0); LYMPHOCYTES # (AUTO) 2.4 K/uL (2.5-16.5); LYMPHOCYTES % (AUTO) 38.9 % (20.5-51.1); MEAN CORPUSCULAR HEMOGLOBIN 30 pg (27-31); MEAN CORPUSCULAR HGB CONC 34 g/dL (33-37); MEAN CORPUSCULAR VOLUME 87.3 fL (80-94); MONOCYTES # (AUTO) 0.3 K/uL (0.8-1.0); MONOCYTES % (AUTO) 5.3 % (1.7-9.3); NEUTROPHILS # (AUTO) 3.2 K/uL (1.8-7.7); NEUTROPHILS % (AUTO) 52.5 % (42.2-75.2); PLATELET COUNT (AUTO) 257 K/uL (140-450); RED BLOOD CELL COUNT(AUTO) 4.76 MIL/uL (4.20-5.40); RED CELL DISTRIBUTION WIDTH 13.3 % (11.6-13.7); WHITE BLOOD COUNT (AUTO) 6.2 K/uL (4.8-10.8)
[2021-02-09 20:02] LABS: ACETONE, SERUM NEGATIVE (NEGATIVE)
[2021-02-09 20:04] LABS: ALBUMIN 3.8 g/dL (3.4-5.0); ANION GAP 9.8 (8-16); ASPARTATE AMINOTRANSFERASE 27 U/L (15-37); CARBON DIOXIDE 28.3 mmol/L (21-32); CHLORIDE 97 mmol/L (98-107); CREATININE 0.7 mg/dL (0.6-1.3); GFR ARICAN-AMERICAN 126 mL/min (>90); GLUCOSE 375 mg/dL (74-106); POTASSIUM 4.1 mmol/L (3.5-5.1); SODIUM SERUM 131 mmol/L (136-145); TOTAL BILIRUBIN 0.5 mg/dL (0.0-1.0); UREA NITROGEN, BLOOD 14 mg/dL (7-18)
[2021-02-09 20:35] LABS: APPEARANCE,URINE CLEAR (CLEAR); BILIRUBIN,URINE NEGATIVE (NEGATIVE); BLOOD, URINE NEGATIVE (NEGATIVE); COLOR,URINE YELLOW (YELLOW); LEUKOCYTE ESTERASE ,URINE NEGATIVE (NEGATIVE); NITRITE, URINE NEGATIVE (NEGATIVE); PH,URINE 5.5 (5.0-9.0); UGLUCOSE 3+ (NEGATIVE)
[2021-02-09] MEDS ORDERED: INSULIN REGULAR, HUMAN 100 UNIT/ML VIAL IVP ONE (20:50)
--- NOTE | 2021-02-09 21:23 | NUR ---
HUMULIN R GIVEN IVP ORDERED, TOLERATED WELL.
--- NOTE | 2021-02-09 21:26 | NUR ---
Female Mink Rancher accompanied female patient for Pelvic Exam. PATIENT IS COMFORTABLE BEFORE DURING AND AFTER EXAMINATION OF THE DOCTOR.
[2021-02-09] MEDS ORDERED: INSU100S22 SUBQ (21:38)
[2021-02-09] MEDS ORDERED: FLUC150T PO (21:38)
[2021-02-09 21:46] VITALS: BP 116/55
--- NOTE | 2021-02-09 21:46 | NUR ---
Patient discharged with v/s stable. Written and verbal after care instructions given and explained. Patient alert, oriented and verbalized understanding of instructions. Ambulatory with steady gait. All questions addressed prior to discharge. ID band removed. Patient advised to follow up with PMD. Rx of FLUCONAZOLE AND ISULIN GLARGINE HUMAN given. Patient educated on indication of medication including possible reaction and side effects. Opportunity to ask questions provided and answered.
--- NOTE | 2021-02-10 23:48 | NUR ---
LATE ENTRY- NORMAL SALINE 0.9% DISCONTINUED AT 2200
== END 2021-02-09 21:46 | disposition home or self-care (01) ==
LOC: MED 18:40
DX: E11.65 Type 2 diabetes mellitus with hyperglycemia (principal); N89.8 Other specified noninflammatory disorders of vagina; R07.89 Other chest pain; Z79.4 Long term (current) use of insulin; Z79.899 Other long term (current) drug therapy; Z98.890 Other specified postprocedural states
CPT/HCPCS: 36415; 71045; 80053; 81003; 81025; 82009; 82948; 84484; 85025; 93005; 96361; 96374; 99285; J1815; J7030

== ENCOUNTER 2021-04-29 19:42 | Observation (INO) | payer MEDICAID, OTHER ==
[~2021-04-29] VITALS: Ht 162.6 cm; Wt 93.0 kg
[~2021-04-29 19:42] MED LIST changes: +FLUC150T PO; +INSU100S22 SUBQ
--- NOTE | 2021-04-29 19:48 | NUR ---
CALLED TO TRIAGE, NO ANSWER
[2021-04-29 19:50] VITALS: BP 129/64
--- NOTE | 2021-04-29 20:14 | NUR ---
31 YO/F BIB SELF ACCOMPANIED BY MOTHER W C/O RLQ SHARP ABDOMINAL PAIN 10/10 X 3HOURS. REPORTS PAIN FEELS BETTER WHEN ABDOMEN IS PRESSED ON. PATIENT REPORTS CONSTIPATION X2 DAYS. PATIENT REPORTS N/V X3 HOURS WHEN PAIN BEGAN. DENIES BLOOD IN VOMIT, DENIES FEVER. VSS. PATIENT SITTING IN BED LOCKED IN LOWEST POSITION, X2 SIDE RAILS UP FOR PATIENT SAFETY. NAD NOTED, WILL CONTINUE TO MONITOR. MOTHER AT BEDSIDE. PMH:DIABETES, X7 MO AGO VIOLETA
[2021-04-29] MEDS ORDERED: ONDANSETRON 4 MG/2 ML VIAL IVP ONE ×3 (20:15→23:25)
[2021-04-29] MEDS ORDERED: MORPHINE SULFATE 4 MG/ML SYR IVP ONE (20:15)
[2021-04-29 20:39] LABS: BASOPHILS % (AUTO) 0.3 % (0.0-2.0); EOSINOPHILS # (AUTO) 0.1 K/uL (0-0.4); EOSINOPHILS % (AUTO) 1.9 % (0.0-4.0); HEMATOCRIT 39.3 % (36-48); HEMOGLOBIN 13.6 g/dL (12.0-16.0); LYMPHOCYTES # (AUTO) 2.8 K/uL (2.5-16.5); LYMPHOCYTES % (AUTO) 34.4 % (20.5-51.1); MEAN CORPUSCULAR HEMOGLOBIN 30 pg (27-31); MEAN CORPUSCULAR HGB CONC 35 g/dL (33-37); MEAN CORPUSCULAR VOLUME 86.5 fL (80-94); MONOCYTES # (AUTO) 0.5 K/uL (0.8-1.0); NEUTROPHILS # (AUTO) 4.6 K/uL (1.8-7.7); NEUTROPHILS % (AUTO) 57.4 % (42.2-75.2); PLATELET COUNT (AUTO) 275 K/uL (140-450); RED BLOOD CELL COUNT(AUTO) 4.55 MIL/uL (4.20-5.40); RED CELL DISTRIBUTION WIDTH 13.4 % (11.6-13.7)
--- NOTE | 2021-04-29 20:55 | NUR ---
CONSENT OBTAINED FOR CT WITH CONTRAST.
[2021-04-29 20:56] LABS: ALBUMIN 3.7 g/dL (3.4-5.0); ANION GAP 11.4 (8-16); CARBON DIOXIDE 25.2 mmol/L (21-32); CREATININE 0.6 mg/dL (0.6-1.3); POTASSIUM 3.6 mmol/L (3.5-5.1); TOTAL BILIRUBIN 0.5 mg/dL (0.0-1.0)
--- NOTE | 2021-04-29 21:12 | NUR ---
PATIENT LAYING IN BED LOCKED IN LOWEST POSITION, X2 SIDERAILS UP FOR PATIENT SAFETY. PATIENT DENIES ANY PAIN. VSS. MOTHER AT BEDSIDE.
--- NOTE | 2021-04-29 23:17 | NUR ---
PATIENT REPORTS SHE FEELS DIZZY AND WOULD LIKE TO HAVE HER GLUCOSE CHECKED. ACCU CHECK DONE W GLU AT 185. ERMD MADE AWARE, NO NEW ORDERS.
[2021-04-30 00:04] LABS: APPEARANCE,URINE CLOUDY (CLEAR); BILIRUBIN,URINE NEGATIVE (NEGATIVE); BLOOD, URINE TRACE-I (NEGATIVE); COLOR,URINE YELLOW (YELLOW); LEUKOCYTE ESTERASE ,URINE NEGATIVE (NEGATIVE); NITRITE, URINE NEGATIVE (NEGATIVE); UGLUCOSE 1+ (NEGATIVE)
--- NOTE | 2021-04-30 00:07 | NUR ---
PATIENT LAYING IN BED LOCKED IN LOWEST POSITION, X2 SIDERAILS UP FOR PATIENT SAFETY. BREATHING EVEN AND UNLABORED. NAD, NOTED. VSS. WILL CONTINUE TO MONITOR. MOTHER AT BEDSIDE.
[2021-04-30 00:24] LABS: RBC,URINE 0-5 /HPF (0-5); WBC,URINE 80-100 /HPF (0-5)
[2021-04-30 00:25] LABS: YEAST,URINE Moderate /HPF (None Seen)
[2021-04-30] MEDS ORDERED: MORPHINE SULFATE 4 MG/ML SYR ONE (01:25)
[2021-04-30] MEDS ORDERED: MORPHINE SULFATE 4 MG/ML SYR IVP ONE (01:25)
[2021-04-30] MEDS: MORPHINE SULFATE 4 MG/ML SYR IVP ONE ×2 (03:25→03:33)
--- NOTE | 2021-04-30 03:30 | NUR ---
PATIENT PASSED PO FRANCHESCA, ROSIED OK TO GIVE FOOD/DRINKS. PATIENT UNABLE TO AMBULATED DUE TO EXPERIENCING 10/10 RLQ PAIN WHEN SITTING UP OR ATTEMPTING TO WALK. ERMD MADE AWARE. PATIENT GIVEN JUICE AND SANDWHICH.
[2021-04-30] MEDS ORDERED: cefTRIAXone 1,000 MG VIAL ONE (03:34)
[2021-04-30] MEDS ORDERED: POTASSIUM CHLORIDE 10 MEQ TABER PO PRN (04:05)
[2021-04-30] MEDS ORDERED: ACETAMINOPHEN 325 MG TAB PO PRN (04:05)
[2021-04-30] MEDS ORDERED: KCL 20 MEQ/WATER INJ PREMIX 200 ML IV PRN (04:05)
[2021-04-30] MEDS ORDERED: MAGNESIUM OXIDE 400 MG TAB PO PRN (04:05)
[2021-04-30] MEDS ORDERED: MAG SULF 2000 MG/WATER PREMIX 50 ML IV PRN (04:05)
[2021-04-30] MEDS ORDERED: HYDROcodone/APAP 5/325 MG 1 TAB TAB PO PRN (04:05)
[2021-04-30] MEDS: NACL 0.9% 1,000 ML IV SCH ×2 (04:31→17:24)
[2021-04-30] MEDS ORDERED: INSU100S22 SUBQ (04:37)
--- NOTE | 2021-04-30 04:48 | NUR ---
Patient appears to be resting comfortably in bed. EYES CLOSED, NO NOTED SIGNS OF DISTRESS OR DISCOMFORT. Respirations even and unlabored.
--- NOTE | 2021-04-30 05:41 | NUR ---
PATIENT AMBULATED TO BATHROOM W STEADY GAIT. PATIENT THEN REPORTED 10/[address] HER WAY BACK TO BED. ONCE IN BED PATIENT DENIED ANY PAIN.
--- NOTE | 2021-04-30 06:20 | NUR ---
PATIENT LAYING IN BED W EYES CLOSED, BREATHING EVEN AND UNLABORED, VSS. NAD NOTED. NS FLUIDS RUNNING AT 80ML/HR W 857ML VTBI.
--- NOTE | 2021-04-30 07:17 | NUR ---
REPORT RECEIVED FROM WILLIAM COREA FOR CONTINUITY OF CARE. PT AWAKE, ALERT. ON ROOM AIR. LUNG SOUNDS CLEAR. ABD SOFT NON TENDER. SKIN INTACT, WARM AND DRY. IV SITE LAC 20G INFSUING 60 ML/HR. SAFETY PRECAUTIONS IN PLACE. WILL CONTINUE TO MONITOR.
--- NOTE | 2021-04-30 07:17 | NUR ---
Pt report given to NAHOMY Paz. Transfer of care at this time.
[2021-04-30] MEDS: MORPHINE SULFATE 4 MG/ML SYR IVP PRN ×3 (07:30→17:24)
--- NOTE | 2021-04-30 08:39 | NUR ---
PATIENT HAS BEEN SCREENED AND CATEGORIZED LOW NUTRITION RISK. PATIENT WILL BE SEEN WITHIN 7 DAYS OF ADMISSION. 05/06/[address]
[2021-04-30] MEDS: ONDANSETRON 4 MG/2 ML VIAL IVP PRN ×3 (09:55→21:57)
--- NOTE | 2021-04-30 10:00 | NUR ---
PT HAD 1 VOMITING EPISODE ZOFRAN PRN GIVEN
--- NOTE | 2021-04-30 10:36 | NUR ---
DR RAIN AT BEDSIDE EXAMINING PT
--- NOTE | 2021-04-30 10:37 | NUR ---
DR RAIN MADE AWARE OF BLOOD SUGAR 174. NO ORDERS RECEIVED.
--- NOTE | 2021-04-30 13:12 | NUR ---
PT AMBULATED TO RESTROOM, WITH ASSIST
--- NOTE | 2021-04-30 13:24 | NUR ---
PT AMBULATED BACK TO BED.
--- NOTE | 2021-04-30 16:09 | NUR ---
RECEIVED REPORT FROM ER. ACCORDING TO ED NURSE PT IS A&OX4 BREATHING ON RA. PT HAS NKA, FULL CODE WITH A CC ABD PAIN AND N/V ADM DX:UTI. PT IS NPO EXCEPT MEDS AND HER LAST BM WAS 04/27/2021. PT AMBULATES AND HER SKIN IS INTACT. PT HAS A LAC 20G IV SL. AT 0800 PT'S BG WAS 174 AND NO INSULIN COVERAGE WAS ADMINISTERED. ED NURSE SAID THAT SHE NOTIFIED BUT THERE WAS NO ANSWER. CT SCAN ON ABDOMEN WERE NEGATIVE. IT HAD BEEN RECEIVING MORPHINE AND ZOFRAN AT THE ED. WILL WIAT FOR PT TO ARRIVE TO UNIT.
--- NOTE | 2021-04-30 16:47 | NUR ---
Patient will be admitted to care of DR RAIN. Admited to MED SURG. Will go to room 112A. Belongings list completed. Report to LANCE COREA.
--- NOTE | 2021-04-30 16:50 | NUR ---
PT ARRIVED TO UNIT. PT CAME ON A WHEELCHAIR AND WAS ABLE TO GET IN BED HERSELF. A HYGIENE KIT WAS PROVIDED ALONG WITH A BLANKET. PT WAS COMPLAINING OF PAIN AND I TOLD HER I WOULD CHECK IF SHE HAD ANYTHING DUE. ASSESSED VS WHICH WERE BP:117/65 TEMP98.3, HR: 65, RR:18, SPO2:96% RA. PT WAS ALSO VOMITING. A GREEN EMESIS BAG WAS PROVIDED. I ORIENTED PT TO HER ROOM AND CALL LIGHT. INTRODUCED MYSELF THE NURSE. SPUSE IS AT BEDSIDE. WILL CONTINUE PLAN OF CARE.
--- NOTE | 2021-04-30 17:00 | NUR ---
MESSAGED IN REGARDS INSULIN FOR HIGH BLOOD GLUCOSE. WILL AWAIT RESPONSE.
[2021-04-30 18:00] VITALS: BP 117/65
--- NOTE | 2021-04-30 19:32 | NUR ---
ENDORSED PT TO NIGHT NURSE FOR CONTINUITY OF CARE. PT IS STABLE.
--- NOTE | 2021-04-30 19:33 | NUR ---
RECD. RESTING IN BED, AWAKE, A/OX4. RESPIRATION EVEN AND UNLABORED. IV OF NS AT 80 ML/HR ML/HR INFUSING LEFT AC G20. AMBULATORY TO THE BR. WITH OCCASIONAL NAUSEA VOMITING.MEDICATIONS AND CARE FOR THE SHIFT DISCUSSED WITH PATIENT. VERBALIZED UNDERSTANDING. DENIES PAIN 0/10.
--- NOTE | 2021-04-30 20:35 | NUR ---
ASSISTED TO AMBULATE TO THE BATHROOM TO VOID, GAIT STEADY.
--- NOTE | 2021-04-30 23:47 | NUR ---
RECEIVED REPORT FROM YUNG JONES.PT'S CONDITION IS STABLE.HAD VOMITING EARLIER . ZOFRAN IVP GIVEN.NO N/V AT THIS TIME.
[2021-05-01 04:00] VITALS: BP 120/65
[2021-05-01] MEDS: NACL 0.9% 1,000 ML IV SCH (05:05)
[2021-05-01 05:50] LABS: BASOPHILS % (AUTO) 0.3 % (0.0-2.0); EOSINOPHILS # (AUTO) 0.1 K/uL (0-0.4); EOSINOPHILS % (AUTO) 1.7 % (0.0-4.0); HEMATOCRIT 38.1 % (36-48); LYMPHOCYTES # (AUTO) 2.5 K/uL (2.5-16.5); LYMPHOCYTES % (AUTO) 34.1 % (20.5-51.1); MEAN CORPUSCULAR HEMOGLOBIN 30 pg (27-31); MEAN CORPUSCULAR HGB CONC 34 g/dL (33-37); MEAN CORPUSCULAR VOLUME 87.6 fL (80-94); MONOCYTES # (AUTO) 0.4 K/uL (0.8-1.0); MONOCYTES % (AUTO) 6.1 % (1.7-9.3); NEUTROPHILS # (AUTO) 4.2 K/uL (1.8-7.7); NEUTROPHILS % (AUTO) 57.8 % (42.2-75.2); PLATELET COUNT (AUTO) 251 K/uL (140-450); RED BLOOD CELL COUNT(AUTO) 4.35 MIL/uL (4.20-5.40); RED CELL DISTRIBUTION WIDTH 13.4 % (11.6-13.7); WHITE BLOOD COUNT (AUTO) 7.4 K/uL (4.8-10.8)
[2021-05-01 06:32] LABS: ALBUMIN 3.1 g/dL (3.4-5.0); ANION GAP 10.9 (8-16); CARBON DIOXIDE 26.8 mmol/L (21-32); CREATININE 0.5 mg/dL (0.6-1.3); MAGNESIUM 1.9 mg/dL (1.8-2.4); POTASSIUM 3.7 mmol/L (3.5-5.1); TOTAL BILIRUBIN 0.4 mg/dL (0.0-1.0)
--- NOTE | 2021-05-01 06:37 | NUR ---
STILL SLEEPING.IVF INFUSING WELL.NO C/O PAIN AND/OR DISCOMFORT.CALL LIGHT IN REACH.
--- NOTE | 2021-05-01 07:25 | NUR ---
PT RECEIVED FROM MANAGER CARE RN,PT RESTING IN BED EYES CLOSED, BREATHING IS SYMMETRICAL. NO S/SX OF DISTRESS. ALLL SAFETY MEASURES IN PLACE.
--- NOTE | 2021-05-01 08:06 | NUR ---
PT AMBULATED TO RESTROOM TOLERATED WELL. PT EDUCATED TO CALL FOR ASSISTANCE AND TO USE NON SLIP SOCKS WHEN OUT OF BED. PT REORIENTED TO ROOM AND HOSPITAL POLICIES , REINFORCEMENT NEEDED. ALL SAFETY MEASURES ARE IN PLACE. PT STATES PAIN IS TOLERABLE AT THIS TIME
[2021-05-01] MEDS: MORPHINE SULFATE 4 MG/ML SYR IVP PRN (09:28)
--- NOTE | 2021-05-01 09:37 | NUR ---
PT COMPLAINS 0F 10/10 PAIN RLQ PAIN REEVED WITH PALPATION AND HOLDING HER TUMMY, MEDICATION GIVEN PER MD ORDER. PT EDUCATED AND VERBALIZED UNDERSTANDING
--- NOTE | 2021-05-01 11:20 | NUR ---
PT ROUNDED ON. PT RESTING EYES CLOSED. BREATHING IS SYMMETRICAL AND UNLABORED
[2021-05-01] MEDS ORDERED: CEPH250C16 PO (11:43)
[2021-05-01 12:38] VITALS: BP 112/65
--- NOTE | 2021-05-01 13:19 | NUR ---
PATIENT DISCHARGE INSTRUCTIONS DONE. PT VERBALIZED UNDERSTANDING FOR CONTINUITY OF CARE. NO S/SX OF DISTRESS AWAITS RIDE
== END 2021-05-01 13:50 | disposition home or self-care (01) ==
LOC: MED 19:42 → EEVIPCON 04-30 04:09 → MTU 04-30 04:09
PROVIDERS: ADMIT Hospitalist; ATTEND Hospitalist
DX: N39.0 Urinary tract infection, site not specified (principal); E66.9 Obesity, unspecified; E11.9 Type 2 diabetes mellitus without complications; K59.00 Constipation, unspecified; Z79.4 Long term (current) use of insulin; Z79.899 Other long term (current) drug therapy
CPT/HCPCS: 36415; 71045; 74177; 76856; 80053; 81001; 82150; 83036; 83690; 83735; 85025; 87086; 93005; 93976; 96361; 96365; 96366; 96375; 96376; 99285; G0378; J0696; J2270; J2405; J7060; Q9967; 96374

== ENCOUNTER 2021-07-17 19:58 | Emergency (ER) | payer OTHER ==
[~2021-07-17] VITALS: Ht 162.6 cm; Wt 86.2 kg
[~2021-07-17 19:58] MED LIST changes: +CEPH250C16 PO; -FLUC150T PO
[2021-07-17 20:13] VITALS: BP 116/69
--- NOTE | 2021-07-17 20:13 | NUR ---
TO BED AMBULATORY
--- NOTE | 2021-07-17 20:39 | NUR ---
31 YO/F BIB SELF W C/O VAGINAL BLEEDING BEGINING TODAY W X1 EPISODE OF HEAVY BLEEDING FOLLOWED BY SPOTTING. + PELVIC CRAMPING X2 DAYS INTERMITTENT 8/10 WHEN PAIN IS PRESENT, NO PAIN AT THIS TIME. +VAGINAL ITCHING X3 DAYS. PT REPORTS SHE IS APPROX 6 WEEKS . DENIES ANY URINARY PROBLEMS, ABNORMAL VAGINAL DISCHARGE, FEVERS, CHILLS, N/VD. PATIENT LAYING IN BED LOCKED IN LOWEST POSITION W X1 SIDERAIL UP. PT PLACED IN GOWN. BREATHING EVEN AND UNLABORED. NAD NOTED, WILL CONTINUE TO MONITOR. PMH:DIABETES NKA
[2021-07-17 21:01] LABS: BASOPHILS % (AUTO) 0.3 % (0.0-2.0); EOSINOPHILS # (AUTO) 0.1 K/uL (0-0.4); EOSINOPHILS % (AUTO) 1.5 % (0.0-4.0); HEMATOCRIT 41.7 % (36-48); HEMOGLOBIN 14.3 g/dL (12.0-16.0); LYMPHOCYTES # (AUTO) 2.1 K/uL (2.5-16.5); LYMPHOCYTES % (AUTO) 30.5 % (20.5-51.1); MEAN CORPUSCULAR HEMOGLOBIN 30 pg (27-31); MEAN CORPUSCULAR HGB CONC 34 g/dL (33-37); MEAN CORPUSCULAR VOLUME 85.8 fL (80-94); MONOCYTES # (AUTO) 0.4 K/uL (0.8-1.0); MONOCYTES % (AUTO) 5.5 % (1.7-9.3); NEUTROPHILS # (AUTO) 4.3 K/uL (1.8-7.7); NEUTROPHILS % (AUTO) 62.2 % (42.2-75.2); PLATELET COUNT (AUTO) 218 K/uL (140-450); RED BLOOD CELL COUNT(AUTO) 4.86 MIL/uL (4.20-5.40); RED CELL DISTRIBUTION WIDTH 12.1 % (11.6-13.7); WHITE BLOOD COUNT (AUTO) 6.9 K/uL (4.8-10.8)
[2021-07-17 21:02] LABS: APPEARANCE,URINE CLEAR (CLEAR); BILIRUBIN,URINE NEGATIVE (NEGATIVE); BLOOD, URINE TRACE-L (NEGATIVE); COLOR,URINE YELLOW (YELLOW); LEUKOCYTE ESTERASE ,URINE NEGATIVE (NEGATIVE); NITRITE, URINE NEGATIVE (NEGATIVE); UGLUCOSE 3+ (NEGATIVE)
--- NOTE | 2021-07-17 21:06 | NUR ---
US AT BEDSIDE.
[2021-07-17 22:37] VITALS: BP 116/69
== END 2021-07-17 22:37 | disposition home or self-care (01) ==
LOC: MED 19:58
DX: O26.891 Other specified pregnancy related conditions, first trimester (principal); N94.6 Dysmenorrhea, unspecified; E11.9 Type 2 diabetes mellitus without complications; Z3A.01 Less than 8 weeks gestation of pregnancy; Z98.890 Other specified postprocedural states; Z79.4 Long term (current) use of insulin; Z79.899 Other long term (current) drug therapy
CPT/HCPCS: 36415; 76817; 81003; 84702; 85025; 86900; 86901; 99284; Q0092

== ENCOUNTER 2021-09-09 22:44 | Emergency (ER) | payer OTHER ==
[~2021-09-09] VITALS: Ht 162.6 cm; Wt 87.1 kg
[2021-09-09 22:56] VITALS: BP 109/57
--- NOTE | 2021-09-09 23:15 | NUR ---
PATIENT BIBA FROM HOME FOR C/O DIZZYNESS WITH HIGH BS AT HOME. PATIENT BS READING 450 PATIENT SELF ADMINISTERED 40U OF HUMILIN R.
[2021-09-09] MEDS ORDERED: NACL 0.9% 1,000 ML IV ONE (23:45)
--- NOTE | 2021-09-10 00:05 | NUR ---
AMBULATED TO BR WITH STEADY GAIT
[2021-09-10 00:21] LABS: BASOPHILS % (AUTO) 0.4 % (0.0-2.0); EOSINOPHILS # (AUTO) 0.1 K/uL (0-0.4); EOSINOPHILS % (AUTO) 1.4 % (0.0-4.0); HEMATOCRIT 38.7 % (36-48); HEMOGLOBIN 13.5 g/dL (12.0-16.0); LYMPHOCYTES # (AUTO) 1.6 K/uL (2.5-16.5); LYMPHOCYTES % (AUTO) 38.6 % (20.5-51.1); MEAN CORPUSCULAR HEMOGLOBIN 29 pg (27-31); MEAN CORPUSCULAR HGB CONC 35 g/dL (33-37); MEAN CORPUSCULAR VOLUME 83.9 fL (80-94); MONOCYTES # (AUTO) 0.4 K/uL (0.8-1.0); MONOCYTES % (AUTO) 9.5 % (1.7-9.3); NEUTROPHILS # (AUTO) 2.1 K/uL (1.8-7.7); NEUTROPHILS % (AUTO) 50.1 % (42.2-75.2); PLATELET COUNT (AUTO) 209 K/uL (140-450); RED BLOOD CELL COUNT(AUTO) 4.61 MIL/uL (4.20-5.40); RED CELL DISTRIBUTION WIDTH 12.9 % (11.6-13.7); WHITE BLOOD COUNT (AUTO) 4.1 K/uL (4.8-10.8)
[2021-09-10 00:44] LABS: APPEARANCE,URINE CLEAR (CLEAR); BILIRUBIN,URINE NEGATIVE (NEGATIVE); BLOOD, URINE 3+ (NEGATIVE); COLOR,URINE YELLOW (YELLOW); LEUKOCYTE ESTERASE ,URINE NEGATIVE (NEGATIVE); NITRITE, URINE NEGATIVE (NEGATIVE); PH,URINE 6.5 (5.0-9.0); UGLUCOSE 3+ (NEGATIVE)
[2021-09-10 00:44] LABS: ACETONE, SERUM NEGATIVE (NEGATIVE)
[2021-09-10 00:48] LABS: ALBUMIN 3.4 g/dL (3.4-5.0); ASPARTATE AMINOTRANSFERASE 15 U/L (15-37); CARBON DIOXIDE 25.6 mmol/L (21-32); CHLORIDE 101 mmol/L (98-107); CREATININE 0.8 mg/dL (0.6-1.3); GFR ARICAN-AMERICAN 108 mL/min (>90); GLUCOSE 348 mg/dL (74-106); POTASSIUM 3.6 mmol/L (3.5-5.1); SODIUM SERUM 139 mmol/L (136-145); TOTAL BILIRUBIN 0.3 mg/dL (0.0-1.0); UREA NITROGEN, BLOOD 14 mg/dL (7-18)
[2021-09-10 00:55] LABS: RBC,URINE 50-80 /HPF (0-5); WBC,URINE 0-5 /HPF (0-5)
[2021-09-10] MEDS ORDERED: INSULIN REGULAR, HUMAN 100 UNIT/ML VIAL IV ONE (00:55)
--- NOTE | 2021-09-10 01:57 | NUR ---
PATIENT BS RECHECKED AND @ 251. PATIENT ALSO HAS C/O 04/09 HO. ERMD MADE AWARE AND GIVEN NEW ORDER FOR PAIN.
[2021-09-10 02:00] VITALS: BP 114/63
[2021-09-10] MEDS ORDERED: KETOROLAC 30 MG/ML VIAL IVP ONE (02:00)
[2021-09-10] MEDS ORDERED: INSU100S22 SUBQ (02:32)
[2021-09-10] MEDS ORDERED: HYD2.5O TP (02:32)
--- NOTE | 2021-09-10 02:35 | NUR ---
Patient discharged with v/s stable. Written and verbal after care instructions given and explained. Patient alert, oriented and verbalized understanding of instructions. Ambulatory with steady gait. All questions addressed prior to discharge. ID band removed. Patient advised to follow up with PMD. Rx of HYDROCORTISONE, LANTUS INSULIN given. Patient educated on indication of medication including possible reaction and side effects. Opportunity to ask questions provided and answered.
== END 2021-09-10 02:35 | disposition home or self-care (01) ==
LOC: MED 22:44
DX: E11.65 Type 2 diabetes mellitus with hyperglycemia (principal); L30.9 Dermatitis, unspecified; Z79.4 Long term (current) use of insulin; Z79.899 Other long term (current) drug therapy; Z98.890 Other specified postprocedural states
CPT/HCPCS: 36415; 80053; 81001; 82009; 85025; 96361; 96374; 96375; 99284; J1815; J1885; J7030

== ENCOUNTER 2022-01-05 19:26 | Emergency (ER) | payer OTHER ==
[~2022-01-05] VITALS: Ht 162.6 cm; Wt 90.7 kg
[~2022-01-05 19:26] MED LIST changes: +HYD2.5O TP
[2022-01-05 19:30] VITALS: BP 103/74
--- NOTE | 2022-01-05 19:30 | NUR ---
TO BED VIA WHEEL CHAIR
--- NOTE | 2022-01-05 19:36 | NUR ---
Patient BIB by family from home. C/O lower back pain x today. Patient reported, had lower back pain today, burning sensation, no weakness, Hx DM , Collapsed Disc (2019-per patient), Patient took Ibuprofen and no relief.
--- NOTE | 2022-01-05 20:25 | NUR ---
Dr. Fontana examining patient.
[2022-01-05] MEDS ORDERED: CYCLOBENZAPRINE 10 MG TAB PO ONE (20:35)
[2022-01-05] MEDS ORDERED: GABAPENTIN 300 MG CAP PO ONE (20:35)
[2022-01-05] MEDS ORDERED: KETOROLAC 60 MG/2 ML VIAL IM ONE (20:35)
[2022-01-05] MEDS ORDERED: ACETAMINOPHEN EXTRA STRENGTH 500 MG TAB PO ONE (20:35)
[2022-01-05] MEDS ORDERED: ACET-10509 PO (20:40)
[2022-01-05] MEDS ORDERED: GABA300C PO (20:40)
[2022-01-05] MEDS ORDERED: LID5T TP (20:40)
[2022-01-05] MEDS ORDERED: CYCL-711 PO (20:40)
[2022-01-05] MEDS ORDERED: IBUP-2213 PO (20:40)
--- NOTE | 2022-01-05 21:00 | NUR ---
Patient discharged with v/s stable. Written and verbal after care instructions given and explained. Patient alert, oriented and verbalized understanding of instructions. Ambulatory with steady gait. All questions addressed prior to discharge. ID band removed. Patient advised to follow up with PMD. Rx of Flexeril, Neurontin, Tylenol, Ibuprofen and Lidocaine Hyd given. Patient educated on indication of medication including possible reaction and side effects. Opportunity to ask questions provided and answered.
== END 2022-01-05 21:00 | disposition home or self-care (01) ==
LOC: MED 19:26
DX: M54.42 Lumbago with sciatica, left side (principal); E11.9 Type 2 diabetes mellitus without complications; Z79.4 Long term (current) use of insulin; Z79.899 Other long term (current) drug therapy
CPT/HCPCS: 81002; 81025; 82948; 96372; 99284; J1885

== ENCOUNTER 2022-03-28 20:13 | Emergency (ER) | payer OTHER ==
[~2022-03-28] VITALS: Ht 162.6 cm; Wt 86.2 kg
[2022-03-28 20:13] VITALS: BP 138/69
[~2022-03-28 20:13] MED LIST changes: +ACET-10509 PO; +CYCL-711 PO; +GABA300C PO; +IBUP-2213 PO; +LID5T TP; +METF-1274 PO; -METF1000 PO
--- NOTE | 2022-03-28 20:19 | NUR ---
PT BROUGHT TO BED 7 VIA MORGAN GARNETT
[2022-03-28] MEDS ORDERED: ACETAMINOPHEN 325 MG TAB PO ONE (20:35)
[2022-03-28 20:47] LABS: BASOPHILS % (AUTO) 0.3 % (0.0-2.0); EOSINOPHILS # (AUTO) 0.1 K/uL (0-0.4); EOSINOPHILS % (AUTO) 1.1 % (0.0-4.0); HEMATOCRIT 38.5 % (36-48); HEMOGLOBIN 13.4 g/dL (12.0-16.0); LYMPHOCYTES # (AUTO) 1.4 K/uL (2.5-16.5); LYMPHOCYTES % (AUTO) 17.8 % (20.5-51.1); MEAN CORPUSCULAR HEMOGLOBIN 30 pg (27-31); MEAN CORPUSCULAR HGB CONC 35 g/dL (33-37); MEAN CORPUSCULAR VOLUME 86.4 fL (80-94); MONOCYTES # (AUTO) 0.2 K/uL (0.8-1.0); NEUTROPHILS # (AUTO) 6.1 K/uL (1.8-7.7); NEUTROPHILS % (AUTO) 77.8 % (42.2-75.2); PLATELET COUNT (AUTO) 195 K/uL (140-450); RED BLOOD CELL COUNT(AUTO) 4.46 MIL/uL (4.20-5.40); RED CELL DISTRIBUTION WIDTH 12.3 % (11.6-13.7); WHITE BLOOD COUNT (AUTO) 7.8 K/uL (4.8-10.8)
[2022-03-28] MEDS ORDERED: NACL 0.9% 1,000 ML IV ONE ×2 (20:50→22:40)
[2022-03-28 21:07] LABS: ALBUMIN 3.6 g/dL (3.4-5.0); CARBON DIOXIDE 24.2 mmol/L (21-32); CREATININE 0.8 mg/dL (0.6-1.3); POTASSIUM 4.2 mmol/L (3.5-5.1); TOTAL BILIRUBIN 0.5 mg/dL (0.0-1.0)
[2022-03-28 21:13] LABS: APPEARANCE,URINE CLEAR (CLEAR); BILIRUBIN,URINE NEGATIVE (NEGATIVE); BLOOD, URINE NEGATIVE (NEGATIVE); COLOR,URINE YELLOW (YELLOW); LEUKOCYTE ESTERASE ,URINE NEGATIVE (NEGATIVE); NITRITE, URINE NEGATIVE (NEGATIVE); UGLUCOSE 3+ (NEGATIVE)
--- NOTE | 2022-03-28 21:20 | NUR ---
32 yo/f presents to ED wc/o "migraine headache" / throbbing temporal radiating to back of head xapprox 30 mins s/p argueing w a family member, +some blurry vision and light sensitivity. Pt denies any fevers, chills, n/v/d, dizzyness or confusion. Pt aox4, gcs 15, ambulatory w steady gait. pmh:migraines, diabetes allergies: denies
[2022-03-28] MEDS ORDERED: diazePAM 5 MG TAB PO ONE (22:40)
--- NOTE | 2022-03-28 23:02 | NUR ---
pt to ct
--- NOTE | 2022-03-28 23:33 | NUR ---
PT C/O N/V. ERMD AWARE.
[2022-03-28] MEDS ORDERED: ONDANSETRON 4 MG/2 ML VIAL ONE (23:43)
[2022-03-28] MEDS ORDERED: ONDANSETRON 4 MG/2 ML VIAL IVP ONE (23:45)
--- NOTE | 2022-03-29 00:09 | NUR ---
PT REPORTS HEADACHE IMPROVEMENT 01/08. DENIES ONGOING N/V.
--- NOTE | 2022-03-29 01:24 | NUR ---
pt reports headache has resolved, no other symptoms. waiting ct results.
[2022-03-29] MEDS ORDERED: NAPR-54 PO (01:47)
--- NOTE | 2022-03-29 02:02 | NUR ---
IV removed, catheter intact and site benign. Applied folded 4x4 gauze and tape to stop bleeding.
[2022-03-29 02:03] VITALS: BP 107/53
--- NOTE | 2022-03-29 02:03 | NUR ---
Patient discharged. Written and verbal after care instructions given and explained about Tension Headache. Patient alert, oriented and verbalized understanding of instructions. Ambulatory with steady gait. All questions addressed prior to discharge. ID band removed. Patient advised to follow up with PMD. Rx of Naproxen given. Patient educated on indication of medication including possible reaction and side effects. Opportunity to ask questions provided and answered.
== END 2022-03-29 02:03 | disposition home or self-care (01) ==
LOC: MED 20:13
DX: R51.9 Headache, unspecified (principal); E11.65 Type 2 diabetes mellitus with hyperglycemia; F41.9 Anxiety disorder, unspecified; Z79.4 Long term (current) use of insulin; Z79.899 Other long term (current) drug therapy; Z98.890 Other specified postprocedural states
CPT/HCPCS: 36415; 70450; 80053; 81003; 84702; 85025; 96361; 96374; 99285; J2405; J7030

== ENCOUNTER 2022-05-23 14:37 | Emergency (ER) | payer OTHER ==
[~2022-05-23] VITALS: Ht 162.6 cm; Wt 88.5 kg
[~2022-05-23 14:37] MED LIST changes: +NAPR-54 PO
[2022-05-23 14:51] VITALS: BP 129/47
--- NOTE | 2022-05-23 15:03 | NUR ---
PT AMB TO BED 11
[2022-05-23] MEDS ORDERED: NACL 0.9% 1,000 ML IV ONE (15:10)
[2022-05-23] MEDS ORDERED: ACETAMINOPHEN EXTRA STRENGTH 500 MG TAB PO ONE (15:15)
[2022-05-23] MEDS ORDERED: KETOROLAC 30 MG/ML VIAL IVP ONE (15:25)
--- NOTE | 2022-05-23 16:10 | NUR ---
32 y/o female bib self from home, c/o dysuria and pelvic pain that started yesterday. upon assessment, pt has several bumps and redness around vaginal area, denies any possible std exposure. pt states she has 10/10 constant suprapubic pain that radiates to low back. denies vaginal bleeding or discharge. pt a&ox4, ambulates with steady gait. lung sounds clear, heart even and tachy. pmh: dm2 nka med: motrin
[2022-05-23] MEDS ORDERED: CIPR500T4 PO (16:30)
[2022-05-23] MEDS ORDERED: IBUP-2213 PO (16:30)
[2022-05-23] MEDS ORDERED: ACET-8386 PO (16:30)
[2022-05-23 17:32] VITALS: BP 129/47
--- NOTE | 2022-05-23 17:33 | NUR ---
Patient discharged with v/s stable. Written and verbal after care instructions given and explained. Patient alert, oriented and verbalized understanding of instructions. Ambulatory with steady gait. All questions addressed prior to discharge. ID band removed. Patient advised to follow up with PMD. Rx of ibuprofen, norco (sent) given. Patient educated on indication of medication including possible reaction and side effects. Opportunity to ask questions provided and answered.
[2022-05-24] MEDS ORDERED: LOTRC TP (22:56)
[2022-05-24] MEDS ORDERED: FLUC150T PO (22:59)
== END 2022-05-23 17:33 | disposition home or self-care (01) ==
LOC: MED 14:37
DX: R30.0 Dysuria (principal); R10.2 Pelvic and perineal pain; R50.9 Fever, unspecified; E11.9 Type 2 diabetes mellitus without complications; Z79.4 Long term (current) use of insulin; Z79.899 Other long term (current) drug therapy; Z98.890 Other specified postprocedural states
CPT/HCPCS: 81002; 81025; 87491; 96361; 96374; 99283; J1885; J7030

== ENCOUNTER 2022-05-24 21:40 | Emergency (ER) | payer OTHER ==
[~2022-05-24] VITALS: Ht 162.6 cm; Wt 88.0 kg
[~2022-05-24 21:40] MED LIST changes: +ACET-8386 PO; +CIPR500T4 PO
[2022-05-24 21:45] VITALS: BP 104/67
--- NOTE | 2022-05-24 21:55 | NUR ---
Patient ambulated to bed 9.
--- NOTE | 2022-05-24 22:42 | NUR ---
Dr. Weathers examining patient.
--- NOTE | 2022-05-24 22:54 | NUR ---
PT WALKED IN C/O ITCHY BUMPS TO EXTERIOR VAGINA. PT WAS SEEN YESTERDAY BUT STATES IT HAS GOTTEN WORSE. +CLEAR YELLOW DISCHARGE. PT STATES A HX OF YEAST INFECTIONS AND POORLY CONTROLLED DM.
[2022-05-24] MEDS ORDERED: FLUCONAZOLE 100 MG TAB PO ONE (22:55)
[2022-05-24] MEDS ORDERED: LOTRC TP (22:56)
[2022-05-24] MEDS ORDERED: FLUC150T PO (22:59)
[2022-05-24] MEDS ORDERED: CRUSHER, PILL MC ONE (23:03)
--- NOTE | 2022-05-24 23:19 | NUR ---
PT STATES SHE WILL HAVE A RIDE HOME 2/2 MORPHINE IM INJECTION.
[2022-05-24] MEDS ORDERED: MORPHINE SULFATE 4 MG/ML SYR IM ONE (23:20)
[2022-05-24 23:35] LABS: APPEARANCE,URINE SL CLOUDY (CLEAR); BILIRUBIN,URINE NEGATIVE (NEGATIVE); BLOOD, URINE 3+ (NEGATIVE); COLOR,URINE YELLOW (YELLOW); LEUKOCYTE ESTERASE ,URINE TRACE (NEGATIVE); NITRITE, URINE NEGATIVE (NEGATIVE); UGLUCOSE 3+ (NEGATIVE)
[2022-05-24 23:49] LABS: RBC,URINE >100 /HPF (0-5); WBC,URINE >25 (MANY) /HPF (0-5)
[2022-05-24 23:50] LABS: YEAST,URINE Few /HPF (None Seen)
--- NOTE | 2022-05-24 23:52 | NUR ---
Patient discharged with v/s stable. Written and verbal after care instructions given and explained. Patient alert, oriented and verbalized understanding of instructions. Ambulatory with steady gait. All questions addressed prior to discharge. ID band removed. Patient advised to follow up with PMD. Rx of FLUCONAZOLE, CLOTRIMAZOLE given. Patient educated on indication of medication including possible reaction and side effects. Opportunity to ask questions provided and answered.
[2022-05-24 23:53] VITALS: BP 104/67
--- NOTE | 2022-05-26 14:45 | NUR ---
LATE ENTRY, RECEIVED CALL FROM LAB THAT SAMPLE THAT WAS SENT TO LAB FOR HSV WAS COLLECTED WITH WRONG SWAB. DR DE LOS SANTOS MADE AWARE, SAID TO CANCEL ORDER.
== END 2022-05-24 23:52 | disposition home or self-care (01) ==
LOC: MED 21:40
DX: B37.3 Candidiasis of vulva and vagina (principal); N39.0 Urinary tract infection, site not specified; E11.9 Type 2 diabetes mellitus without complications; Z79.899 Other long term (current) drug therapy; Z79.891 Long term (current) use of opiate analgesic; Z79.1 Long term (current) use of non-steroidal anti-inflammatories (NSAID); Z79.2 Long term (current) use of antibiotics; Z79.4 Long term (current) use of insulin
CPT/HCPCS: 36415; 81001; 81025; 87070; 87086; 87205; 96372; 99283; J2270; 87075; 87252

== ENCOUNTER 2022-11-30 18:04 | Emergency (ER) | payer OTHER ==
[~2022-11-30] VITALS: Ht 167.6 cm; Wt 91.4 kg
[~2022-11-30 18:04] MED LIST changes: -ACET-8386 PO; +ACET-8905 PO; +FLUC150T PO; +LOTRC TP
--- NOTE | 2022-11-30 18:37 | NUR ---
CALLEDX1. NO SHOW.
[2022-11-30 19:15] VITALS: BP 133/75
--- NOTE | 2022-11-30 20:09 | NUR ---
Dr. Arvizu examining patient.
[2022-11-30] MEDS ORDERED: ACETAMINOPHEN 325 MG TAB PO ONE (20:15)
[2022-11-30] MEDS ORDERED: ONDANSETRON 4 MG ODT PO ONE (20:15)
[2022-11-30] MEDS ORDERED: predniSONE 20 MG TAB PO ONE (20:25)
[2022-11-30] MEDS ORDERED: KETOROLAC 15 MG/ML VIAL IM ONE (20:25)
[2022-11-30] MEDS ORDERED: ACYC400T14 PO (21:06)
[2022-11-30] MEDS ORDERED: PRED20TA5 PO (21:06)
[2022-11-30 21:11] VITALS: BP 128/75
--- NOTE | 2022-11-30 21:11 | NUR ---
Patient discharged with v/s stable. Written and verbal after care instructions given and explained. Patient alert, oriented and verbalized understanding of instructions. Ambulatory with steady gait. All questions addressed prior to discharge. ID band removed. Patient advised to follow up with PMD. Rx of Zovirax and Prednisone given. Patient educated on indication of medication including possible reaction and side effects. Opportunity to ask questions provided and answered.
== END 2022-11-30 21:11 | disposition home or self-care (01) ==
LOC: MED 18:04
DX: G51.0 Bell's palsy (principal); R51.9 Headache, unspecified; E11.9 Type 2 diabetes mellitus without complications; Z98.890 Other specified postprocedural states; Z79.899 Other long term (current) drug therapy; Z79.891 Long term (current) use of opiate analgesic; Z79.1 Long term (current) use of non-steroidal anti-inflammatories (NSAID); Z79.4 Long term (current) use of insulin; Z79.2 Long term (current) use of antibiotics
CPT/HCPCS: 81025; 96372; 99284; J1885; J7512; Q0162

== ENCOUNTER 2023-01-29 16:00 | Emergency (ER) | payer OTHER ==
[~2023-01-29] VITALS: Ht 157.5 cm; Wt 70.3 kg
[~2023-01-29 16:00] MED LIST changes: +ACYC400T14 PO; +PRED20TA5 PO
[2023-01-29 16:23] VITALS: BP 111/73
[2023-01-29] MEDS ORDERED: KETOROLAC 30 MG/ML VIAL IM ONE (18:35)
[2023-01-29] MEDS ORDERED: LORazepam 2 MG/ML VIAL IM ONE (18:35)
[2023-01-29 19:00] LABS: BILIRUBIN,URINE NEGATIVE (NEGATIVE); BLOOD, URINE 2+ (NEGATIVE); COLOR,URINE YELLOW (YELLOW); LEUKOCYTE ESTERASE ,URINE 2+ (NEGATIVE); NITRITE, URINE NEGATIVE (NEGATIVE); UGLUCOSE NEGATIVE (NEGATIVE)
[2023-01-29 19:02] LABS: APPEARANCE,URINE HAZY (CLEAR)
[2023-01-29 19:16] LABS: RBC,URINE 0-5 /HPF (0-5); WBC,URINE 20-60 /HPF (0-5)
--- NOTE | 2023-01-29 19:47 | NUR ---
Patient resting in bed, A/Ox4, chest rise and fall symmetrical, no c/o pain or s/s of distress, on monitor.
--- NOTE | 2023-01-29 19:50 | NUR ---
ER physician speaking with patient.
[2023-01-29] MEDS ORDERED: IBUP-2213 PO (19:56)
[2023-01-29] MEDS ORDERED: CEPH-588 PO (19:56)
--- NOTE | 2023-01-29 20:10 | NUR ---
Dr. Putnam verbally informed that patient stated she "felt dizzy." Dr. Putnam reassessed patient's gait and patient able to ambulate without assist. Addendum: 01/29/23 at [id number] Putnam verbally informed that patient stated she "felt dizzy." Dr. Putnam reassessed patient's gait and patient able to ambulate without assist. Dr. Putnam stated patient "is safe to discharge."
[2023-01-29 20:23] VITALS: BP 121/78
== END 2023-01-29 20:04 | disposition home or self-care (01) ==
LOC: MED 16:00
DX: N39.0 Urinary tract infection, site not specified (principal); R51.9 Headache, unspecified; E11.9 Type 2 diabetes mellitus without complications; Z79.4 Long term (current) use of insulin; Z79.899 Other long term (current) drug therapy
CPT/HCPCS: 81001; 81025; 87086; 93005; 96372; 99284; J1885; J2060

== ENCOUNTER 2023-07-06 21:55 | Emergency (ER) | payer OTHER ==
[~2023-07-06] VITALS: Ht 165.1 cm; Wt 90.7 kg
[~2023-07-06 21:55] MED LIST changes: +CEPH-588 PO
[2023-07-06 22:03] VITALS: BP 108/65; PULSE 85; RESP 20; TEMP 97.8; O2SAT 97
[2023-07-06] MEDS ORDERED: NACL 0.9% 1,000 ML IV ONE (23:10)
[2023-07-06] MEDS ORDERED: METOCLOPRAMIDE 10 MG/2 ML INJ VIAL IVP ONE (23:10)
[2023-07-06] MEDS ORDERED: MECLIZINE 25 MG TAB PO ONE (23:10)
[2023-07-06] MEDS ORDERED: diphenhydrAMINE 50 MG/ML VIAL IVP ONE (23:10)
[2023-07-06 23:37] LABS: BASOPHILS % (AUTO) 0.3 % (0.0-2.0); EOSINOPHILS # (AUTO) 0.1 K/uL (0-0.4); HEMATOCRIT 40.7 % (36-48); LYMPHOCYTES # (AUTO) 2.6 K/uL (2.5-16.5); LYMPHOCYTES % (AUTO) 38.2 % (20.5-51.1); MEAN CORPUSCULAR HEMOGLOBIN 29 pg (27-31); MEAN CORPUSCULAR HGB CONC 35 g/dL (33-37); MEAN CORPUSCULAR VOLUME 84.6 fL (80-94); MONOCYTES # (AUTO) 0.4 K/uL (0.8-1.0); NEUTROPHILS # (AUTO) 3.7 K/uL (1.8-7.7); NEUTROPHILS % (AUTO) 53.5 % (42.2-75.2); PLATELET COUNT (AUTO) 281 K/uL (140-450); RED BLOOD CELL COUNT(AUTO) 4.81 MIL/uL (4.20-5.40); RED CELL DISTRIBUTION WIDTH 12.4 % (11.6-13.7); WHITE BLOOD COUNT (AUTO) 6.9 K/uL (4.8-10.8)
[2023-07-06 23:51] LABS: ALANINE AMINOTRANSFERASE 19 U/L (12-78); ALBUMIN 3.6 g/dL (3.4-5.0); ALKALINE PHOSPHATASE 88 U/L (50-136); ANION GAP 12.2 (8-16); ASPARTATE AMINOTRANSFERASE 16 U/L (15-37); CALCIUM 9.2 mg/dL (8.5-10.1); CARBON DIOXIDE 25.7 mmol/L (21-32); CHLORIDE 99 mmol/L (98-107); CREATININE 0.8 mg/dL (0.6-1.3); GFR ARICAN-AMERICAN 106 mL/min (>90); GFR NON ARICAN-AMERICAN 88 mL/min (>90); GLUCOSE 346 mg/dL (74-106); LIPASE 82 U/L (16-77); POTASSIUM 3.9 mmol/L (3.5-5.1); SODIUM SERUM 133 mmol/L (136-145); TOTAL BILIRUBIN 0.3 mg/dL (0.0-1.0); UREA NITROGEN, BLOOD 11 mg/dL (7-18)
[2023-07-07] MEDS ORDERED: MECL-303 PO (00:57)
[2023-07-07] MEDS ORDERED: ONDA-188 PO (00:57)
[2023-07-07 01:18] VITALS: BP 109/72; PULSE 85; RESP 20; TEMP 97.8; O2SAT 97
== END 2023-07-07 01:18 | disposition home or self-care (01) ==
LOC: MED 21:55
DX: H81.10 Benign paroxysmal vertigo, unspecified ear (principal); E11.65 Type 2 diabetes mellitus with hyperglycemia; Z79.899 Other long term (current) drug therapy; Z79.2 Long term (current) use of antibiotics; Z79.1 Long term (current) use of non-steroidal anti-inflammatories (NSAID); Z79.4 Long term (current) use of insulin
CPT/HCPCS: 36415; 80053; 83690; 84484; 85025; 96361; 96374; 96375; 99284; J1200; J2765; J7030; J8597

== ENCOUNTER 2023-10-05 18:49 | Emergency (ER) | payer OTHER ==
[~2023-10-05] VITALS: Ht 165.1 cm; Wt 88.9 kg
[~2023-10-05 18:49] MED LIST changes: +MECL-303 PO; +ONDA-188 PO
[2023-10-05 19:36] VITALS: BP 105/66; PULSE 89; RESP 16; TEMP 97.3; O2SAT 99
[2023-10-05 20:29] LABS: BASOPHILS % (AUTO) 0.4 % (0.0-2.0); EOSINOPHILS # (AUTO) 0.2 K/uL (0-0.4); EOSINOPHILS % (AUTO) 2.3 % (0.0-4.0); HEMATOCRIT 39.8 % (36-48); LYMPHOCYTES % (AUTO) 36.9 % (20.5-51.1); MEAN CORPUSCULAR HEMOGLOBIN 30 pg (27-31); MEAN CORPUSCULAR HGB CONC 35 g/dL (33-37); MEAN CORPUSCULAR VOLUME 86.3 fL (80-94); MONOCYTES # (AUTO) 0.4 K/uL (0.8-1.0); MONOCYTES % (AUTO) 5.5 % (1.7-9.3); NEUTROPHILS # (AUTO) 4.5 K/uL (1.8-7.7); NEUTROPHILS % (AUTO) 54.9 % (42.2-75.2); PLATELET COUNT (AUTO) 258 K/uL (140-450); RED BLOOD CELL COUNT(AUTO) 4.61 MIL/uL (4.20-5.40); WHITE BLOOD COUNT (AUTO) 8.2 K/uL (4.8-10.8)
[2023-10-05 20:50] LABS: ANION GAP 11.8 (8-16); CALCIUM 9.2 mg/dL (8.5-10.1); CARBON DIOXIDE 29.2 mmol/L (21-32); CREATININE 0.7 mg/dL (0.6-1.3)
[2023-10-05] MEDS ORDERED: INSU100S22 SUBQ (21:14)
== END 2023-10-05 21:34 | disposition home or self-care (01) ==
LOC: MED 18:49
DX: E11.65 Type 2 diabetes mellitus with hyperglycemia (principal); Z79.4 Long term (current) use of insulin; Z79.899 Other long term (current) drug therapy
CPT/HCPCS: 36415; 80048; 82009; 84703; 85025; 99283

== ENCOUNTER 2023-10-12 19:25 | Emergency (ER) | payer OTHER ==
[~2023-10-12] VITALS: Ht 162.6 cm; Wt 86.2 kg
[2023-10-12 19:40] VITALS: BP 101/64; PULSE 81; RESP 17; TEMP 98.1; O2SAT 100
[2023-10-12 20:37] LABS: FLU A ANTIGEN negative (NEGATIVE); FLU B ANTIGEN NEGATIVE (NEGATIVE)
[2023-10-12 23:01] VITALS: O2SAT 98
[2023-10-12 23:11] VITALS: TEMP 98.1
[2023-10-12] MEDS ORDERED: NACL 0.9% 1,000 ML IV ONE (23:20)
[2023-10-12] MEDS ORDERED: KETOROLAC 30 MG/ML VIAL IVP ONE (23:20)
[2023-10-13 00:06] LABS: APPEARANCE,URINE CLEAR (CLEAR); BILIRUBIN,URINE NEGATIVE (NEGATIVE); BLOOD, URINE NEGATIVE (NEGATIVE); COLOR,URINE YELLOW (YELLOW); LEUKOCYTE ESTERASE ,URINE NEGATIVE (NEGATIVE); NITRITE, URINE NEGATIVE (NEGATIVE); PROTEIN,URINE NEGATIVE (NEGATIVE); UGLUCOSE 2+ (NEGATIVE); UROBILINOGEN,URINE 0.2 EU/dL (0.2 - 1)
[2023-10-13 00:09] LABS: ANION GAP 14.5 (8-16); CALCIUM 8.9 mg/dL (8.5-10.1); CREATININE 0.7 mg/dL (0.6-1.3); POTASSIUM 3.5 mmol/L (3.5-5.1)
[2023-10-13 00:22] LABS: BACTERIA,URINE OCCASSIONAL /HPF (None Seen); RBC,URINE NONE SEEN /HPF (0-5); WBC,URINE 0-5 /HPF (0-5)
[2023-10-13 00:23] LABS: OTHER CRYSTALS,URINE HIPPURIC ACID 1+ /HPF (None Seen); SQUAMOUS EPITHELIAL CELL,UR 0-3 (FEW) /LPF (0-3 (FEW))
[2023-10-13] MEDS ORDERED: ACET-10509 PO (00:51)
[2023-10-13] MEDS ORDERED: NIRM1TAB PO (00:51)
[2023-10-13 01:16] VITALS: BP 109/67; PULSE 85; RESP 12; O2SAT 97
== END 2023-10-13 01:08 | disposition home or self-care (01) ==
LOC: MED 19:25
DX: B34.9 Viral infection, unspecified (principal); E11.9 Type 2 diabetes mellitus without complications; Z20.822 Contact with and (suspected) exposure to COVID-19; Z79.899 Other long term (current) drug therapy; Z79.2 Long term (current) use of antibiotics; Z79.4 Long term (current) use of insulin
CPT/HCPCS: 36415; 71045; 80048; 81001; 87426; 87804; 96361; 96374; 99284; J1885; J7030

== ENCOUNTER 2024-03-08 09:08 | Emergency (ER) | payer OTHER ==
[~2024-03-08] VITALS: Ht 167.6 cm; Wt 87.8 kg
[~2024-03-08 09:08] MED LIST changes: +NAPR-337 PO; -NAPR-54 PO; +NIRM1TAB PO
[2024-03-08 09:11] VITALS: BP 112/72; PULSE 91; RESP 18; TEMP 97.9; O2SAT 98
[2024-03-08 09:24] VITALS: O2SAT 98
[2024-03-08] MEDS: METOCLOPRAMIDE 10 MG/2 ML INJ VIAL IM ONE (09:51)
[2024-03-08] MEDS: KETOROLAC 30 MG/ML VIAL IM ONE (09:53)
== END 2024-03-08 10:52 | disposition home or self-care (01) ==
LOC: MED 09:08
DX: G43.909 Migraine, unspecified, not intractable, without status migrainosus (principal); E11.9 Type 2 diabetes mellitus without complications; Z79.84 Long term (current) use of oral hypoglycemic drugs; Z79.4 Long term (current) use of insulin; Z79.1 Long term (current) use of non-steroidal anti-inflammatories (NSAID); Z79.2 Long term (current) use of antibiotics; Z79.899 Other long term (current) drug therapy
CPT/HCPCS: 81025; 82948; 96372; 99284; J1885; J2765